=== PATIENT | male | born 1945 | race Caucasian/White ===

== ENCOUNTER 2019-07-06 12:28 | Emergency (ER) | payer OTHER ==
[~2019-07-06] VITALS: Ht 180.3 cm; Wt 44.0 kg
[~2019-07-06 12:28] MED LIST: ANXIETY; ASPI81CH PO; CHOLESTEROL; GEMF600 PO; Lipo-Flavonoid1 EACH PO; MULVITMIND PO; Paxil20 MG PO
[2019-07-06 13:12] LABS: BASOPHILS ABSOLUTE AUTO 0.07 K/mm3 (0.00-0.23); BASOPHILS PERCENT AUTO 1 % (0-2); EOSINOPHILS ABSOLUTE AUTO 0.63 K/mm3 (0.00-0.68); EOSINOPHILS PERCENT AUTO 7 % (0-6); Hematocrit 42.6 % (37.0-53.0); Hemoglobin 13.8 g/dL (13.5-17.5); IMMATURE GRAN ABSOLUTE AUTO 0.02 K/mm3 (0.00-0.10); IMMATURE GRAN PERCENT AUTO 0 % (0-1); LYMPHOCYTES ABSOLUTE AUTO 2.24 K/mm3 (0.84-5.20); LYMPHOCYTES PERCENT AUTO 26 % (21-46); MONOCYTES ABSOLUTE AUTO 0.65 K/mm3 (0.16-1.47); MONOCYTES PERCENT AUTO 8 % (4-13); Mean Corpuscular HGB Conc 32.4 g/dL (31.5-36.5); Mean Corpuscular Volume 93 fL (80-100); Mean Platelet Volume 11.4 fL (9.1-12.4); NEUTROPHILS ABSOLUTE AUTO 4.96 K/mm3 (1.96-9.15); NEUTROPHILS PERCENT AUTO 58 % (41-73); Platelet Count 215 K/mm3 (150-400); RDW Coefficient Variation 12.4 % (11.7-14.2); RDW Standard Deviation 42.4 fL (35.1-46.3); White Blood Cell Count 8.57 K/mm3 (4.00-11.30)
[2019-07-06 13:16] LABS: Alanine Aminotransfer (ALT/SGP 28 U/L (12-78); Albumin, Blood 3.5 g/dL (3.4-5.0); Albumin/Globulin Ratio 0.9 (0.8-1.8); Alk Phos 83 U/L (50-136); Anion Gap 5 mmol/L (6-16); Aspartate Aminotrans (AST/SGOT 21 U/L (12-37); Bilirubin, Total 1.1 mg/dL (0.1-1.0); Blood Urea Nitrogen 17 mg/dL (8-24); Bun/Creatinine Ratio 16.8 (12.0-20.0); CO2, Blood 26 mmol/L (21-32); Calcium, Blood 8.7 mg/dL (8.5-10.1); Chloride, Blood 109 mmol/L (98-108); Creatinine, Blood 1.01 mg/dL (0.60-1.20); Globulin, Blood 3.9 g/dL (2.2-4.0); Glomerular Filtration Rate >60 (60-); Glucose, Blood 97 mg/dL (70-99); Potassium, Blood 4.3 mmol/L (3.5-5.5); Sodium, Blood 140 mmol/L (136-145); Total Protein, Blood 7.4 g/dL (6.4-8.2)
[2019-07-06 14:12] LABS: Source, Urine Voided
[2019-07-06 14:15] LABS: Bilirubin, Urine Neg (Neg); Blood, Urine Neg (Neg); Glucose Qualitative, Urine Neg (Neg); Ketones, Urine Neg (Neg); Leukocyte Esterase, Urine Neg (Neg); Nitrite, Urine Neg (Neg); Protein, Urine Neg (Neg); Urobilinogen, Urine NORM (Normal)
[2019-07-06 14:21] LABS: Appearance, Urine Clear (Clear); Color, Urine Yellow (P-Yellow)
[2019-07-06] MEDS ORDERED: LEVE500 PO (15:12)
== END 2019-07-06 15:47 | disposition home or self-care (01) ==
LOC: ER 12:28
PROVIDERS: Emergency Medicine
DX: R41.0 Disorientation, unspecified (principal); Z79.899 Other long term (current) drug therapy; Z79.82 Long term (current) use of aspirin; F41.9 Anxiety disorder, unspecified
CPT/HCPCS: 36415; 70450; 71046; 80053; 81003; 85025; 93005; 93010; 96365; 99285-25; J1953

== ENCOUNTER 2019-10-30 12:56 | Emergency (ER) | payer OTHER ==
[~2019-10-30] VITALS: Ht 177.8 cm; Wt 93.0 kg
[~2019-10-30 12:56] MED LIST changes: +LEVE500 PO
[2019-10-30 13:32] LABS: Source, Urine Clean Catch
[2019-10-30 13:34] LABS: Bilirubin, Urine Neg (Neg); Blood, Urine Neg (Neg); Glucose Qualitative, Urine Neg (Neg); Ketones, Urine 2+ (Neg); Leukocyte Esterase, Urine 1+ (Neg); Nitrite, Urine Neg (Neg); Protein, Urine 1+ (Neg); Specific Gravity, Urine 1.025 (1.003-1.022); Urobilinogen, Urine 1+ (Normal)
[2019-10-30 14:03] LABS: Appearance, Urine Clear (Clear); Color, Urine Yellow (P-Yellow)
[2019-10-30 14:04] LABS: Mucus Mod (0-Heavy)
[2019-10-30 14:05] LABS: Bacteria Few /hpf; Squamous Epithelial Cells Not Seen /hpf (Few)
[2019-10-30] MEDS ORDERED: QUET25 PO (14:07)
[2019-10-30] MEDS ORDERED: Macrobid 100 M100 MG PO (14:07)
[2019-11-13] MEDS ORDERED: ATOR20 PO (18:30)
[2019-11-13] MEDS ORDERED: CLOP75 PO (18:30)
[2019-11-13] MEDS ORDERED: GABA300 PO (18:30)
[2019-11-13] MEDS ORDERED: LEVE500 PO (21:02)
== END 2019-10-30 14:21 | disposition home or self-care (01) ==
LOC: ER 12:56
PROVIDERS: Physician Assistant
DX: N39.0 Urinary tract infection, site not specified (principal); F03.91 Unspecified dementia, unspecified severity, with behavioral disturbance; R82.81 Pyuria; Z79.82 Long term (current) use of aspirin; Z79.899 Other long term (current) drug therapy; E78.00 Pure hypercholesterolemia, unspecified; F41.9 Anxiety disorder, unspecified; Z86.73 Personal history of transient ischemic attack (TIA), and cerebral infarction without residual deficits
CPT/HCPCS: 81001; 87086; 99282

== ENCOUNTER 2019-11-19 22:57 | Emergency (ER) | payer OTHER ==
[~2019-11-19] VITALS: Ht 177.8 cm; Wt 95.2 kg
[~2019-11-19 22:57] MED LIST changes: +ATOR20 PO; +CLOP75 PO; +GABA300 PO; +Macrobid 100 M100 MG PO; +QUET25 PO
[2019-11-20 00:13] LABS: Source, Urine Voided
[2019-11-20 00:15] LABS: BASOPHILS ABSOLUTE AUTO 0.07 K/mm3 (0.00-0.23); BASOPHILS PERCENT AUTO 1 % (0-2); EOSINOPHILS ABSOLUTE AUTO 0.33 K/mm3 (0.00-0.68); EOSINOPHILS PERCENT AUTO 4 % (0-6); Hematocrit 40.2 % (37.0-53.0); Hemoglobin 12.9 g/dL (13.5-17.5); IMMATURE GRAN ABSOLUTE AUTO 0.04 K/mm3 (0.00-0.10); IMMATURE GRAN PERCENT AUTO 0 % (0-1); LYMPHOCYTES ABSOLUTE AUTO 1.74 K/mm3 (0.84-5.20); LYMPHOCYTES PERCENT AUTO 19 % (21-46); MONOCYTES ABSOLUTE AUTO 0.71 K/mm3 (0.16-1.47); MONOCYTES PERCENT AUTO 8 % (4-13); Mean Corpuscular HGB 29.6 pg (26.0-34.0); Mean Corpuscular HGB Conc 32.1 g/dL (31.5-36.5); Mean Corpuscular Volume 92 fL (80-100); NEUTROPHILS ABSOLUTE AUTO 6.39 K/mm3 (1.96-9.15); NEUTROPHILS PERCENT AUTO 69 % (41-73); Platelet Count 205 K/mm3 (150-400); RDW Coefficient Variation 12.8 % (11.7-14.2); RDW Standard Deviation 43.8 fL (35.1-46.3); Red Blood Cell Count 4.36 M/mm3 (4.30-5.90); White Blood Cell Count 9.28 K/mm3 (4.00-11.30)
[2019-11-20 00:16] LABS: Bilirubin, Urine Neg (Neg); Blood, Urine 1+ (Neg); Glucose Qualitative, Urine Neg (Neg); Ketones, Urine Neg (Neg); Leukocyte Esterase, Urine 1+ (Neg); Nitrite, Urine Neg (Neg); Protein, Urine Neg (Neg); Specific Gravity, Urine 1.025 (1.003-1.022); Urobilinogen, Urine NORM (Normal)
[2019-11-20 00:19] LABS: Appearance, Urine Clear (Clear); Color, Urine Yellow (P-Yellow)
[2019-11-20 00:23] LABS: Bacteria Few /hpf; Mucus Light (0-Heavy); Squamous Epithelial Cells Not Seen /hpf (Few); White Blood Cells, Urine 0-2 /hpf (0-5)
[2019-11-20 00:26] LABS: U Amphetamine Screen Not Detected; U Barbituate Screen Not Detected; U Benzodiazapine Screen Not Detected; U Buprenorphine Screen Not Detected; U Cannabinoids Screen Not Detected; U Cocaine Screen Not Detected; U Methadone Screen Not Detected; U Methamphetamine Screen Not Detected; U Opiates Screen Not Detected; U Oxycodone Screen Not Detected; U Phencyclidine Screen Not Detected
[2019-11-20 00:27] LABS: U Propoxyphene Screen Not Detected
[2019-11-20 00:33] LABS: Alanine Aminotransfer (ALT/SGP 24 U/L (12-78); Albumin, Blood 3.5 g/dL (3.4-5.0); Albumin/Globulin Ratio 0.9 (0.8-1.8); Alk Phos 93 U/L (50-136); Anion Gap 5 mmol/L (6-16); Aspartate Aminotrans (AST/SGOT 16 U/L (12-37); Bilirubin, Total 0.5 mg/dL (0.1-1.0); Blood Urea Nitrogen 21 mg/dL (8-24); Bun/Creatinine Ratio 17.2 (12.0-20.0); CO2, Blood 27 mmol/L (21-32); Calcium, Blood 8.7 mg/dL (8.5-10.1); Chloride, Blood 110 mmol/L (98-108); Creatinine, Blood 1.22 mg/dL (0.60-1.20); Ethanol (Alcohol), Blood, Med <3 mg/dL; Glomerular Filtration Rate >60 (60-); Glucose, Blood 125 mg/dL (70-99); Potassium, Blood 4.1 mmol/L (3.5-5.5); Sodium, Blood 142 mmol/L (136-145); Total Protein, Blood 7.5 g/dL (6.4-8.2)
== END 2019-11-20 10:42 | disposition home or self-care (01) ==
LOC: ER 22:57
PROVIDERS: Emergency Medicine
DX: F03.90 Unspecified dementia, unspecified severity, without behavioral disturbance, psychotic disturbance, mood disturbance, and anxiety (principal); Z79.82 Long term (current) use of aspirin; Z79.899 Other long term (current) drug therapy; F41.9 Anxiety disorder, unspecified; E78.00 Pure hypercholesterolemia, unspecified; Z86.73 Personal history of transient ischemic attack (TIA), and cerebral infarction without residual deficits
CPT/HCPCS: 36415; 70450; 80053; 81001; 85025; 87086; 99285-25; G0480

== ENCOUNTER 2019-11-22 20:10 | Observation (INO) | payer OTHER ==
[~2019-11-22] VITALS: Ht 177.8 cm; Wt 94.4 kg
[2019-11-22 21:28] LABS: Source, Urine Clean Catch
[2019-11-22 21:39] LABS: Bilirubin, Urine Neg (Neg); Blood, Urine Neg (Neg); Glucose Qualitative, Urine Neg (Neg); Ketones, Urine Neg (Neg); Leukocyte Esterase, Urine Neg (Neg); Nitrite, Urine Neg (Neg); Protein, Urine Neg (Neg); Specific Gravity, Urine 1.025 (1.003-1.022); Urobilinogen, Urine NORM (Normal)
[2019-11-22 21:42] LABS: Appearance, Urine Clear (Clear); Color, Urine Yellow (P-Yellow)
[2019-11-22 21:46] LABS: U Amphetamine Screen Not Detected; U Barbituate Screen Not Detected; U Benzodiazapine Screen Not Detected; U Buprenorphine Screen Not Detected; U Cannabinoids Screen Not Detected; U Cocaine Screen Not Detected; U Methadone Screen Not Detected; U Methamphetamine Screen Not Detected; U Opiates Screen Not Detected; U Oxycodone Screen Not Detected; U Phencyclidine Screen Not Detected; U Propoxyphene Screen Not Detected
[2019-11-22 21:47] LABS: BASOPHILS ABSOLUTE AUTO 0.08 K/mm3 (0.00-0.23); BASOPHILS PERCENT AUTO 1 % (0-2); EOSINOPHILS ABSOLUTE AUTO 0.43 K/mm3 (0.00-0.68); EOSINOPHILS PERCENT AUTO 5 % (0-6); Hematocrit 41.2 % (37.0-53.0); Hemoglobin 13.1 g/dL (13.5-17.5); IMMATURE GRAN ABSOLUTE AUTO 0.05 K/mm3 (0.00-0.10); IMMATURE GRAN PERCENT AUTO 1 % (0-1); LYMPHOCYTES ABSOLUTE AUTO 1.46 K/mm3 (0.84-5.20); LYMPHOCYTES PERCENT AUTO 17 % (21-46); MONOCYTES ABSOLUTE AUTO 0.72 K/mm3 (0.16-1.47); MONOCYTES PERCENT AUTO 8 % (4-13); Mean Corpuscular HGB 29.7 pg (26.0-34.0); Mean Corpuscular HGB Conc 31.8 g/dL (31.5-36.5); Mean Corpuscular Volume 93 fL (80-100); Mean Platelet Volume 11.1 fL (9.1-12.4); NEUTROPHILS ABSOLUTE AUTO 6.03 K/mm3 (1.96-9.15); NEUTROPHILS PERCENT AUTO 69 % (41-73); Platelet Count 220 K/mm3 (150-400); RDW Coefficient Variation 13.2 % (11.7-14.2); RDW Standard Deviation 45.3 fL (35.1-46.3); Red Blood Cell Count 4.41 M/mm3 (4.30-5.90); White Blood Cell Count 8.77 K/mm3 (4.00-11.30)
[2019-11-22 22:12] LABS: Ethanol (Alcohol), Blood, Med <3 mg/dL; Salicylate <1.7 mg/dL (2.8-20.0)
[2019-11-22 22:13] LABS: Acetaminophen, Random <2.0 ug/mL (10.0-30.0)
[2019-11-23 01:12] LABS: Alanine Aminotransfer (ALT/SGP 28 U/L (12-78); Albumin, Blood 3.7 g/dL (3.4-5.0); Albumin/Globulin Ratio 0.9 (0.8-1.8); Alk Phos 91 U/L (50-136); Anion Gap 6 mmol/L (6-16); Aspartate Aminotrans (AST/SGOT 19 U/L (12-37); Bilirubin, Total 0.5 mg/dL (0.1-1.0); Blood Urea Nitrogen 18 mg/dL (8-24); Bun/Creatinine Ratio 15.9 (12.0-20.0); CO2, Blood 27 mmol/L (21-32); Calcium, Blood 8.8 mg/dL (8.5-10.1); Chloride, Blood 110 mmol/L (98-108); Creatinine, Blood 1.13 mg/dL (0.60-1.20); Globulin, Blood 4.1 g/dL (2.2-4.0); Glomerular Filtration Rate >60 (60-); Glucose, Blood 136 mg/dL (70-99); Potassium, Blood 4.1 mmol/L (3.5-5.5); Sodium, Blood 143 mmol/L (136-145); Total Protein, Blood 7.8 g/dL (6.4-8.2)
--- NOTE | 2019-11-23 02:34 | NUR ---
PT TO ICU 14 VIA WHEELCHAIR WITH CREDIT UNION EXAMINER @ 0114, PT ORIENTED TO SELF AND YEAR, BELVES HE IS IN [place] AND UNSURE OF THE DAY/MONTH. PT DROWSY, WAS GIVEN A DOSE OF SEROQUEL IN THE ED, DIFFICULTY OBTAINING INFORMATION PT FALLS ASLEEP DURING ASSESSMENT, PT REMAINS AROUSABLE TO VERBAL STIMULI. VSS, O2 SATURATIONS> 90% ON RA. PT UNSURE OF LAST FOOD/DRINK AND LAST BM. REPORTS HAVING A CHIPPED TOOTH, BUT DENIES ANY PAIN OR DISCOMFORT. CALL PLACED TO DR THOMPSON REGARDING IV PLACEMENT, LABS SABLE, ORDERS FOR NO IV ACCESS NEEDED PLACED.
--- NOTE | 2019-11-23 06:38 | NUR ---
TO PTS ROOM UPON HEARING BED ALARM SOUND, PT OUT OF BED, STS NEEDS TO USE THE RESTROOM, ASSISTED PT TO BEDSIDE TOILET, REMINDED PT OF CALL LIGHT. PT WITH STEADY GAIT, MINIMAL VERBAL ASSISTANCE, BED ALARM SENSITIVIT INCREASED. CALL LIGTH WITHIN REACH, PT CALM, COOPERATIVE AND PLEASANT.
--- NOTE | 2019-11-23 08:30 | NUR ---
ASSESSMENT- PT AWAKE, ALERT, COOPERATIVE. ABLE TO ANSWER QUESTIONS APPROPRIATELY. DR. SNELL HERE-UPDATED. TO SEE BACK ROLL LATHE OPERATOR TODAY. EATING BREAKFAST, PT DENIES COMPLAINTS. BED ALARM ON
[2019-11-23 10:28] LABS: BASOPHILS ABSOLUTE AUTO 0.07 K/mm3 (0.00-0.23); BASOPHILS PERCENT AUTO 1 % (0-2); EOSINOPHILS PERCENT AUTO 7 % (0-6); Hematocrit 38.5 % (37.0-53.0); Hemoglobin 12.4 g/dL (13.5-17.5); IMMATURE GRAN ABSOLUTE AUTO 0.03 K/mm3 (0.00-0.10); IMMATURE GRAN PERCENT AUTO 0 % (0-1); LYMPHOCYTES ABSOLUTE AUTO 1.71 K/mm3 (0.84-5.20); LYMPHOCYTES PERCENT AUTO 23 % (21-46); MONOCYTES ABSOLUTE AUTO 0.55 K/mm3 (0.16-1.47); MONOCYTES PERCENT AUTO 7 % (4-13); Mean Corpuscular HGB Conc 32.2 g/dL (31.5-36.5); Mean Corpuscular Volume 93 fL (80-100); NEUTROPHILS ABSOLUTE AUTO 4.69 K/mm3 (1.96-9.15); NEUTROPHILS PERCENT AUTO 62 % (41-73); Platelet Count 190 K/mm3 (150-400); RDW Coefficient Variation 13.2 % (11.7-14.2); Red Blood Cell Count 4.13 M/mm3 (4.30-5.90); White Blood Cell Count 7.55 K/mm3 (4.00-11.30)
[2019-11-23 10:40] LABS: Alanine Aminotransfer (ALT/SGP 26 U/L (12-78); Albumin, Blood 3.2 g/dL (3.4-5.0); Albumin/Globulin Ratio 0.8 (0.8-1.8); Alk Phos 82 U/L (50-136); Anion Gap 3 mmol/L (6-16); Aspartate Aminotrans (AST/SGOT 20 U/L (12-37); Bilirubin, Total 0.9 mg/dL (0.1-1.0); Blood Urea Nitrogen 16 mg/dL (8-24); Bun/Creatinine Ratio 17.1 (12.0-20.0); CO2, Blood 29 mmol/L (21-32); Calcium, Blood 8.5 mg/dL (8.5-10.1); Chloride, Blood 108 mmol/L (98-108); Creatinine, Blood 0.94 mg/dL (0.60-1.20); Globulin, Blood 3.9 g/dL (2.2-4.0); Glomerular Filtration Rate >60 (60-); Glucose, Blood 136 mg/dL (70-99); Potassium, Blood 3.5 mmol/L (3.5-5.5); Sodium, Blood 140 mmol/L (136-145); Total Protein, Blood 7.1 g/dL (6.4-8.2)
--- NOTE | 2019-11-23 10:54 | NUR ---
PT ASSISTED TO GET UP IN ROOM, AMBULATES WITHOUT PROBLEMS. COOPERATIVE
--- NOTE | 2019-11-23 12:34 | NUR ---
ATE 100% LUNCH. DENIES ANY PROBLEMS. DAUGHTER CALLED-WANTS TO TALK WITH SOCIAL SERVICE, NUMBER GIVEN TO JUAN JOSÉ
--- NOTE | 2019-11-23 15:58 | NUR ---
SOCIAL SERVICE CALLED WITH [employer]-STATE TALKED WITH PT'S DAUGHTER, PLAN FOR POSSIBLE MEMORY CARE PLACEMENT. PT VOICES CONCERNS THAT HE WOULD LIKE HIS DAUGHTER TO MOVE OUT, UPDATE TO WOOD TECHNOLOGIST. PSYCH CONSULT ORDERED BY DR. SNELL, DR. LOMELI TO SEE TOMORROW. PT STATES WOULD LIKE TO GO HOME BUT IS AGREEABLE TO STAY. ALERT, ORIENTED TO SITUATION, COOPERATIVE. UP IN ROOM BY SELF. VSS
[2019-11-23] MEDS ORDERED: KEPPRA1000 MG PO (16:10)
[2019-11-23] MEDS ORDERED: ALBU90OI INH (16:12)
--- NOTE | 2019-11-23 16:23 | NUR ---
MEDICATION REC- CALLED PT'S DAUGHTER CLAYTON REGARDING MEDICATIONS-REVIEWED MED LIST. NOTIFIED DR. SNELL OF DOSES OF KEPPRA AND PAXIL AND SEROQUEL. INCREASE DOSES TO PT'S REGULAR DOSES AT HOME OF KEPPRA AND PAXIL BUT KEEP SEROQUEL AT 50 MG UNTIL PSYCH EVAL.
--- NOTE | 2019-11-23 18:25 | NUR ---
PT UP IN ROOM, SOME PACING, PUT ON HIS OWN CLOTHES. EXPLAINED PLAN OF CARE, PT AGREEABLE TO LAY ON BED. WORRIED ABOUT HIS CAR KEYS-CALLED PT'S DAUGHTER AND KEYS ARE AT HOME. PT NEEDS MUCH ASSURANCE THAT KEYS ARE NOT LOST. UPDATE TO DR. SNELL REGARDING PACING, ANXIETY. ORDERS FOR BEDTIME DOSE OF SEROQUEL TO GIVE NOW, AND PRN DOSES IF NEEDED. CONTINUE TO MONITOR AND PROVIDE REASSURANCE.
--- NOTE | 2019-11-23 18:51 | NUR ---
PT COMFORTABLE IN BED NOW WATCHING TV.
--- NOTE | 2019-11-23 21:28 | NUR ---
ASSUMPTION OF CARE PT RESTING IN BED WATCHING TELEVISION, ORIENTED TO SELF, LOCATION, MONTH, YEAR AND FOLLOWING DIRECTIONS. PT HAS DIFFICULTY REPORTING WHAT BROUGHT HIM INTO THE HOSPITAL. PT NOT ANSWERING QUESTIONS AT TIMES, DIFFICULT TO DISCERN WHETHER PT IS HARD OF HEARING OR CONFUSED, BUT REMAINS CALM AND PLEASANT. PT AMBULATES INDEPENDENTLY IN ROOM, SWALLOWS PILLS WHOLE WITH WATER, SNACKS AT BEDSIDE, EATING INDEPENDENTLY. RECEIVED CALL FROM PTS BROTHER AND SISTER IN LAW, FELICITA PETTY, UPDATED ON PTS STATUS. FELICITA REPORT HELPING PTS DAUGHTER WITH PTS CARE WHILE DAUGHTER WAS OUT OF TOWN, STS PT HAS BEEN HAVING DIFFICULTY REMEMBERING TO TAKE HIS PILLS AND NEEDS HELP WITH PREPARING MEALS. THEY STATE PT BECOMES EASILY AGITATED AT TIMES AND IS DIFFICULT TO REDIRECT/CALM DOWN BUT HE RESPONDS WELL TO PEOPLE OF AUTHORITY SUCH POLICE, EMS, NURSES, ETC.
--- NOTE | 2019-11-23 23:34 | NUR ---
PT UP IN ROOM LOOKING FOR BATHROOM, PT WITH INCONTINENT VOID WHILE SLEEPING, ASSISTED PT TO BEDSIDE TOILET. PT REFUSES TO CHANGE UNDERWEAR OR ALLOW STAFF TO CHANGE LINENS ON BED. PRN SEROQUEL ADMINISTERED. FOLLOW WITH PT, PT CONTINUES TO DECLINE NEW PANTS AND LINENS.
--- NOTE | 2019-11-24 00:30 | NUR ---
ATTEMPTS MADE TO FIND MALE STAFF MEMBER TO ASSIST PT WITH CLOTHING AND LINEN CHANGE. THOMAS DELAROSA CNA TO PTS ROOM, PT AGREEABLE TO LINEN AND CLOTHING CHANGE.
--- NOTE | 2019-11-24 05:03 | NUR ---
REPORT CALLED TO MEDICAL FLOOR RN, DEPARTED ICU @ [phone]
--- NOTE | 2019-11-24 05:35 | NUR ---
LOADING MANAGER SUMMARY Patient arrived from ICU to room 352 without compliications, no complaints of discomfort. Patient did state that he did not want female staff assisting with his personal needs. See previous shift summary
--- NOTE | 2019-11-24 16:23 | NUR ---
SUMMARY PT HAS BEEN CALM, PLEASANT/COOPERATIVE T/O DAY. A/O X2, HE IS FORGETFUL OF TIME/DATE, SOMEWHAT FORGETFUL OF RECENT EVENTS. DR LOMELI IN FOR ASSESSMENT, STATE MEMORY DEFICITS NOTED, SPOKE w DAUGHTER WHO HAS GUARDIANSHIP, PLAN FOR PT TO TRANSITION TO MEMORY CARE FACILITY WHEN APPROP. PT UP TODAY TO SHOWER, SBA. 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 NO MANAGEMENT ISSUES T/O DAY.
--- NOTE | 2019-11-25 02:30 | NUR ---
0230 ASSUMPTION OF CARE RECIEVED REPORT FROM ASIA OGLESBY. APPEARS TO BE RESTING. NO ACUTE NEEDS AT THIS TIME. BED REAMINS IN LOWEST POSITION; ALARM ON. CALL LIGHT WITHIN REACH. WCTM.
--- NOTE | 2019-11-25 05:39 | NUR ---
SHIFT SUMMARY ALERT, ABLE TO MAKE NEEDS KNOWN. COOPERATIVE WITH CARE. ANSWERS QUESTIONS APPROPRIATELY. NO C/O PAIN/DISCOMFORT. SBA TO BATHROOM; STEADY GAIT NOTED. APPEARED TO REST WELL. NO ACUTE CHANGES NOTED. VSS/AFEBRILE. BED REAMINS IN LOWEST POSITION; ALARM ON. CALL LIGHT WITHIN REACH. WCTM. REPORT TO ONCOMING RN.
--- NOTE | 2019-11-25 17:40 | NUR ---
SHIFT SUMMARY PT A/O X 4. PT BED IN LOWEST POSITION. PT CALLING APPROPRIATELY. VSS. NO IV ACCESS. AWAITING PLACEMENT OF PT.
--- NOTE | 2019-11-26 04:44 | NUR ---
SUMMARY NO ISSUES NOTED PT HAS BEEN QUIET FORMOST OF SHIFT. PT CURRENTLY SLEEPING IN NO DISTRESS. CALL LIGHT IN REACH AND BED ALARM ON.
--- NOTE | 2019-11-26 17:09 | NUR ---
SHIFT SUMMARY PT ALERT TO SELF AND LOCATION THIS SHIFT. PT FORGETS TO CALL. BED ALARM ON. PT FREQUENTLY GETS OUT OF BED TO USE THE BATHROOM. PT'S BROTHER IN THE ROOM TO VISIT EARLY THIS AFTERNOON. PT STATED REPEATEDLY THAT HE WANTED TO GO HOME. WHEN ASKED HOW HE WAS GETTING HOME HE STATED HIS BROTHER, WHO DECLINED TO PROVIDE A RIDE. PT GREW AGITATED AND DIFFICULT TO REDIRECT. PT'S BROTHER DECIDED TO LEAVE STATING THAT HIS PRESENCE WAS EXACERBATING THE ISSUE. PT DIFFICULT TO REDIRECT FOR A SHORT PERIOD AFTER THEN CALMED CONCIDERABLY. PT HAS BEEN LAYING IN BED, COOPERATIVE WITH CARE, WITH THE TELEVISION ON THROUGH THE REST OF THE SHIFT.
--- NOTE | 2019-11-27 05:23 | NUR ---
SUMMARY PT REMAINS CONFUSED. PT STATED HE WANTED TO WALK HOME AND HAD PUT ON HIS SHOES. PT WAS REDIRECTED TO BED EASILY. PT REPORTS HEARING HIS BROTHER IN THE HALLWAY. PT HAS SLEPT OFF AND ON AND AT TIMES TRIED TO GET OUT OF BED W/ OUT ASSISTANCE. PT HAS BEEN COOPERATIVE W/ CARE. PT CURRENTLY SLEEPING IN NO DISTRESS. BED ALARM ON.
--- NOTE | 2019-11-27 16:39 | NUR ---
SHIFT SUMMARY PT LOW FALL RISK, MADE IND IN ROOM. CAMERA TURNED OFF. NO CHANGES IN ASSESSMENT AT THIS TIME. PT AMBULATING WELL IN ROOM. VOIDING WELL IN BATHROOM. PT DENIES PAIN T/O DAY. VS REVIEWED. PT AWAITNG PLACEMENT. WILL CONTINUE TO MONITOR UNTIL TURNOVER IS COMPLETE.
--- NOTE | 2019-11-28 05:35 | NUR ---
SUMMARY: PT A/OX4, INDEPENDENT IN ROOM AND HAS BEEN PLEASANT/COOPERATIVE W/CARE. HE'S DENIED PAIN, NAUSEA AND ALL OTHER COMPLAINTS THIS SHIFT. HE'S UP AD HINA TO TOILET AND SPECIFIES NEEDS PRN. VSS/AFEBRILE, NO ACUTE CHANGES. PT AWAITING PLACEMENT. WCTM AND REPORT TO DAY RN.
--- NOTE | 2019-11-28 16:32 | NUR ---
SHIFT SUMMARY- PT A/OX3, FORGETFUL AT TIMES. LS CLEAR, ON RA. HRR. PT WITH NO COMPLAINTS T/O THE DAY. INDEP UP IN ROOM AND HALLS. GOOD APPETITE. PT AWAITING MEMORY CARE PLACEMENT AT THIS TIME.
--- NOTE | 2019-11-29 04:45 | NUR ---
SUMMARY: PT A/OX3 BUT HAD PARANOID DELUSIONS AT START OF SHIFT THAT "A MAN WAS COMING TO KILL HIM W/A REVOLVER". HE ADMITTED HE'D "CLIMB OUT THE WINDOW RIGHT NOW IF IT WASN'T 30 FEET TO THE GROUND". REORIENTATION, REASSURANCE AND SAFETY ENSURED AND PT CALMED DOWN. HS SEROQUEL RECIEVED AND PT SLEPT MAJORITY OF NOCTE EXCEPT TO VOID. HE'S INDEPENDENT IN ROOM AND SPECIFIES NEEDS. NO ACUTE CHANGES, VSS/AFEBRILE. PLACEMENT PENDING. WCTM AND REPORT TO DAY RN.
--- NOTE | 2019-11-29 15:59 | NUR ---
SHIFT SUMMARY- PT A/O X3 BUT FORGETFUL. PT INDEP UP IN ROOM. PT DENIES ANY COMPLAINTS T/O THE DAY. LS CLEAR, ON RA. HRR. PT HAS BEEN PLEASANT AND COOPERATIVE BUT DID GET ANXIOUS WHEN FAMILY WAS HERE AND WAS WANTING TO GO HOME. PT CURRENTLY AWAITING MEMORY CARE PLACEMENT.
--- NOTE | 2019-11-30 03:47 | NUR ---
SHIFT SUMMARY PATIENT HAD NO ACUTE CHANGES OBSERVED. AXOX 3 AND FORGETFUL. INDEPENDENT IN THE ROOM. TAKES MEDICATION WHOLE WITH WATER. NO IV ACCESS. VSS/AFEBRILE. DENIES PAIN, SOB, AND N/V. SCHEDULE SEROQUEL GIVEN PER EMAR. HX DEMENTIA. CALL LIGHT IN REACH. BED IN LOWEST POSITION. WILL CONTINUE TO MONITOR UNTIL DAY SHIFT NURSE ASSUMES CARE.
--- NOTE | 2019-11-30 23:23 | NUR ---
PATIENT WALKED OUT INTO TRIVEDI WANTING TO LEAVE FULLY DRESSED. PATIENT REORIENTED TO TIME AND PLACE AND WENT BACK INTO ROOM. WILL CONTINUE TO MONITOR.
--- NOTE | 2019-12-01 03:45 | NUR ---
SHIFT SUMMARY PATIENT HAD NO ACUTE CHANGES OBSERVED. PATIENT OOB WANTED TO LEAVE FULLY DRESSED X ONE. REORIENTED TO TIME AND PLACE AND ABLE TO GO BACK INTO ROOM. HX DEMENTIA. AXOX 2 AND INDEPENDENT. VSS/AFEBRILE. DENIES PAIN, SOB, AND N/V. TOOK MEDICATION WHOLE WITH WATER. NO IV ACCESS. CALL LIGHT IN REACH. BED IN LOWEST POSITION. WILL CONTINUE TO MONITOR UNTIL DAY SHIFT NURSE ASSUMES CARE.
--- NOTE | 2019-12-01 10:26 | NUR ---
0955- PT TAKEN BY MELISSA FLOREZ TO HAVE [facility] ESOPHAGIAL STUDY
--- NOTE | 2019-12-01 17:51 | NUR ---
SUMM- PT ALERT TO SELF AND PLACE. FORGETFUL, AND PERSEVERATING ON GOING HOME. THINKS SOMEONE TOLD HIM HE COULD GO HOME TODAY. RN SPOKE WITH RICH, PT'S DAUGHTER WHO STATES HE LIVED WITH HIS OTHER DAUGHTER AND WAS PHYSICALLY ABBUSIVE TO HER. HE HAS SOME FORM OF DEMENTIA THAT HASN'T BEED DIAGNOSED YET BY A NEUROLOGIST, BUT HAS BEEN KNOWN TO BE VIOLENT AND SUICIDAL, STANDING ON THE RAILROAD TRACKS IN THE PAST. PT HAS BEEN CALM AND COOPERATIVE AND DIRECTABLE, WITHDRAWN AND SHY. BUT GOT PT TO COME OUT INTO TRIVEDI AND WALK AROUND, LOOK OUT THE WINDOW.
--- NOTE | 2019-12-01 19:49 | NUR ---
Pt awake in bed watching TV. Denied pain when asked. Call light in reach.
--- NOTE | 2019-12-02 06:04 | NUR ---
SHIFT SUMMARY NOTED SOME APPARENT PARANOIA WITH MEDS AT , HIS AFFECT AND DEMEANOR SEEMED SKEPTICAL WHEN NURSE DISCUSSED THEM WITH HIM. NURSE OPENED MEDS IN FRONT OF PT AND PT SLOWLY TOOK THEM ONE AT A TIME WITH QUESTIONS. CALL LIGHT IN REACH. HAS BEEN RESTING WITH FEW INTERUPTIONS SINCE .
[2019-12-02 10:07] LABS: BASOPHILS ABSOLUTE AUTO 0.09 K/mm3 (0.00-0.23); BASOPHILS PERCENT AUTO 1 % (0-2); EOSINOPHILS ABSOLUTE AUTO 0.42 K/mm3 (0.00-0.68); EOSINOPHILS PERCENT AUTO 5 % (0-6); Hematocrit 42.7 % (37.0-53.0); Hemoglobin 13.6 g/dL (13.5-17.5); IMMATURE GRAN ABSOLUTE AUTO 0.05 K/mm3 (0.00-0.10); IMMATURE GRAN PERCENT AUTO 1 % (0-1); LYMPHOCYTES ABSOLUTE AUTO 2.07 K/mm3 (0.84-5.20); LYMPHOCYTES PERCENT AUTO 25 % (21-46); MONOCYTES ABSOLUTE AUTO 0.54 K/mm3 (0.16-1.47); MONOCYTES PERCENT AUTO 7 % (4-13); Mean Corpuscular HGB 29.5 pg (26.0-34.0); Mean Corpuscular HGB Conc 31.9 g/dL (31.5-36.5); Mean Corpuscular Volume 93 fL (80-100); Mean Platelet Volume 11.2 fL (9.1-12.4); NEUTROPHILS ABSOLUTE AUTO 4.97 K/mm3 (1.96-9.15); NEUTROPHILS PERCENT AUTO 61 % (41-73); Platelet Count 223 K/mm3 (150-400); RDW Coefficient Variation 12.8 % (11.7-14.2); RDW Standard Deviation 43.7 fL (35.1-46.3); Red Blood Cell Count 4.61 M/mm3 (4.30-5.90); White Blood Cell Count 8.14 K/mm3 (4.00-11.30)
[2019-12-02 10:21] LABS: Alanine Aminotransfer (ALT/SGP 52 U/L (12-78); Albumin, Blood 3.5 g/dL (3.4-5.0); Albumin/Globulin Ratio 0.9 (0.8-1.8); Alk Phos 92 U/L (50-136); Anion Gap 3 mmol/L (6-16); Aspartate Aminotrans (AST/SGOT 26 U/L (12-37); Bilirubin, Total 0.8 mg/dL (0.1-1.0); Blood Urea Nitrogen 21 mg/dL (8-24); CO2, Blood 29 mmol/L (21-32); Calcium, Blood 8.9 mg/dL (8.5-10.1); Chloride, Blood 107 mmol/L (98-108); Creatinine, Blood 1.05 mg/dL (0.60-1.20); Glomerular Filtration Rate >60 (60-); Glucose, Blood 121 mg/dL (70-99); Potassium, Blood 3.8 mmol/L (3.5-5.5); Sodium, Blood 139 mmol/L (136-145); Total Protein, Blood 7.5 g/dL (6.4-8.2)
--- NOTE | 2019-12-02 13:10 | NUR ---
PT IS AGITATED INSIST ON WALKING HOME TO [facility], PT IS ARGUMENTATIVE AND NOT EASILY REDIRECTABLE, THE PT WAS GIVEN SEAQUEL AT THIS TIME, THE PT ATTEMPTED TO CALL HIS FAMILY BUT RECIEVED NO ANSWER, THE PT WAS UP IN THE TRIVEDI PUSHING ON THE DOOR TO GET OUT, AFTER APROX. 20 MIN THE PT RETURNED BACK TO HIS ROOM AND IS NOW LYING ON HIS BED
--- NOTE | 2019-12-02 17:10 | NUR ---
PT IS A/OX2, COOPERATIVE, THE PT HAS BEEN MOSTLY COMPLIANT TODAY, EXCEPT THIS AFTERNOON WHEN HE INSISTED ON WALKING HOME AND CAME OUT INTO THE TRIVEDI AND TRIED TO LEAVE THE SCU, THE PT EVENTUALLY GAVE UP AND WENT BACK INTO HIS ROOM AND LAYED DOWN ON HIS BED, THE PT APPEARS TO BE BREATHING EASILY ON RA, THE PT DENIED ANY PAIN, N/V, OR SOB T/O THE DAY, PT IS UP IND IN HIS ROOM, CALL LIGHT IN REACH, PT IS AWAITNG MEMORY CARE PLACEMENT
--- NOTE | 2019-12-02 20:46 | NUR ---
WAS AWAKE IN BED, TOLERALTED HS MEDS WHEN EXPLAINED AND OPENED IN FRONT OF HIM. REFUSED WATER BUT TOLERATED APPLESAUCE WELL WITH MEDS. AFFECT SAD, ASKED ABOUT DISCHARGE. VOICED UNDERSTANDING ABOUT HIM DISCUSSING IT WITH THE MD IN THE AM. LATER NOTED PT UP WANDERING ABOUT HALLWAY, LOOKING OUT THE WINDOW. PT ASKED IF HIS BROTHER WAS HERE TO PICK HIM UP YET. AGAIN REDIRECTED TO TIME OF NIGHT BUT THAT IF ANYONE WAS HERE TO SEE HIM, I WOULD LET HIM KNOW. VOICED UNDERSTANDING. WENT BACK TO ROOM. CALL LIGHT IN REACH
--- NOTE | 2019-12-03 04:42 | NUR ---
SHIFT SUMMARY WAS AWAKE AND PACING HALLWAY AT . VOICED HE WAS LOOKING FOR HIS BROTHER WHO HE FELT WAS COMING TO PICK HIM UP TO TAKE HIM HOME. WE DISCUSSED HIS SPEAKING TO THE MD RE WHAT HE WANTED, PT VOICED UNDERSTANDING BUT STILL PACED SOME BEFORE GOING BACK TO BED. HAS BEEN RESTING QUIETLY SINCE WHEN OBSERVED DURING ROUNDING. CALL LIGHT IN REACH
--- NOTE | 2019-12-03 17:00 | NUR ---
PT IS A/OX3, COOPERATIVE, TODAY THE PT BECAME IRRITATED AGAIN AND ATTEMPTED TO LEAVE THE UNIT INSISTING THAT HE WAS GOING TO WALK TO [place] AND CALL FOR A RIDE TO [facility], THE PT WAS PUSHING UP AGAINST THE UNIT CLOSED DOOR, ATTEMPTS TO DEESCALATE THE PT SWENSON MADE AND EVENTUALLY SECURITY WAS CALLED AND THE PT WAS TALKED INTO RETURNING TO HIS ROOM, PRN SERAQUAL WAS GIVEN TO THE PT X2 TODAY, THIS AFTERNOON THE PT HAS BEEN RESTING IN BED CALM, PT APPEARS TO BE BREATHING EASILY, CALL LIGHT IN REACH, PLAN IS TO DISCHARGE THE PT TO MEMORY CARE ON WEDNESDAY
--- NOTE | 2019-12-03 19:42 | NUR ---
PT WAS LAYING ON HIS BED, QUIET, WHEN STAFF ENTERED. VOICED HE WANTED TO GO HOME, AGREED TO DISCUSS IT WITH MD IN THE AM, PREVIUS NURSE WHO WAS WITH US, VOICED THAT THE POSSIBLE DC WAS POTENTIAL FOR TOMORROW. CALL LIGHT IN REACH
--- NOTE | 2019-12-04 10:31 | NUR ---
AGITATION: PATIENT UP TO THE LOCKED DOORS MULTIPLE TIMES THIS MORNING. PATIENT HAS HIS SUITCASE AND REPORTS THAT HE IS READY TO LEAVE AND WALK HOME. USED DIVERSION AND CALM COMMUNICATION THE INITIAL TIME TO ASSIST PATIENT BACK TO HIS ROOM. PATIENT AGAIN AT THE DOOR TO LEAVE. PATIENT IS ADAMANT THAT HE BE ALLOWED TO LEAVE AND WALK HOME. PATIENT'S BODY CALM. PATIENT RAISED HIS VOICE, BUT DID NOT YELL OR THREATEN STAFF. DISCUSSED DIFFICULTY OF WALKING HOME TO [place]. ENCOURAGED PATIENT TO STAY SO THAT WE COULD HELP HIM HERE. PATIENT CONTINUES TO BE UPSET AND AGITATED ABOUT NOT BEING ALLOWED TO LEAVE. PATIENT CONTINUES TO ATTEMPT TO GO OUT THE DOOR WHENEVER STAFF LEAVES THE UNIT. PATIENT SITTING IN A CHAIR BY THE EXIT DOORS. MEDICATED PER PRN FOR AGITATION.
--- NOTE | 2019-12-04 15:51 | NUR ---
AGITATION: PATIENT UPSET ABOUT NOT BEING ABLE TO LEAVE. PATIENT IS ABLE TO PULL ON THE DOOR STOP AND LET HIMSELF OUT OF THE SPECIAL CARE UNIT. USING CALM WORDS AND EXPLAINING TO THE PATIENT THAT HIS FAMILY WANTS HIM TO BE SAFE, ABLE TO GET PATIENT TO REMAIN ON THE UNIT. THIS HAPPENED TWO TIMES. ASSISTED PATIENT WITH A PHONE CALL FROM HIS BROTHER. PATIENT NOW INSISTS THAT HIS BROTHER IS GOING TO BE DOWNSTAIRS TO PICK HIM UP. REMINDED PATIENT THAT HIS BROTHER WILL COME UP TO SEE HIM. PATIENT CONTINUES TO BE AGITATED AND UPSET. MEDICATED PER PRNS. DISCUSSED PATIENT'S AGITATION WITH THE PATIENT'S BROTHER. ENCOURAGED BROTHER TO COME AND VISIT TOMORROW. PATIENT SITTING AT THE END OF THE TRIVEDI LOOKING OUT THE WINDOW. CONTINUES TO REMAIN PHYSICALLY CALM WITH STAFF.
--- NOTE | 2019-12-04 19:12 | NUR ---
END OF SHIFT SUMMARY: PATIENT DENIED PAIN THROUGHOUT THE SHIFT. PATIENT ANXIOUS AND AGITATED ABOUT NOT BEING ABLE TO LEAVE. ATTEMPTED MULTIPLE TIMES TO LEAVE THE UNIT. PROVIDING CALM REDIRECTION WORKED TO GET PATIENT BACK ON UNIT. STAFF PRESENCE AND PRN MEDICATION HELPED DECREASE AGITATION AND ANXIETY. SEE NURSES NOTE. BY THE END OF THE SHIFT, PATIENT CALMLY RESTING IN BED. PATIENT INDEPENDENT IN ROOM. PATIENT WALKS SLOWLY BUT STEADILY. PATIENT HAS AN EXCELLENT APPETITE. DENIES ABDOMINAL DISCOMFORT.
--- NOTE | 2019-12-05 04:48 | NUR ---
DISTRIBUTION TRANSFORMER ASSEMBLER SUMMARY NO ACUTE CHANGES THIS SHIFT. PT AAOX3, INDEPENDENT IN ROOM. PT ANSWERING QUESTIONS APPROPRIATELY AND HAS BEEN PLEASANT WHEN INTERACTING WITH STAFF. DENIED PAIN, SOB, N/V. PT UP TO BATHROOM TO URINATE TWICE TONIGHT. PT HAS SLEPT MOST OF THE NIGHT. VSS, WILL CONTINUE TO MONITOR.
--- NOTE | 2019-12-05 14:31 | NUR ---
PRISCA DONALDSON: SPOKE WITH MEIR AT [facility]. SHE IS BACK FROM [place]. SHE WILL ATTEMPT TO COME AND SEE THE PATIENT THIS WEEK OR WEEKEND. SHE REPORTS THAT THERE ARE NO OPENINGS UNTIL NEXT WEEK OR THE WEEK AFTER. MESSAGE LEFT FOR ETIENNE JAMESON RN TO UPDATE ON THE DISCHARGE OPTIONS.
--- NOTE | 2019-12-05 18:28 | NUR ---
END OF SHIFT SUMMARY: PATIENT DENIED PAIN THROUGHOUT SHIFT. PATIENT CONTINUED TO EXPRESS CONFUSION ABOUT WHY HE WAS UNABLE TO DISCHARGE. MULTIPLE TIMES, PATIENT CAME OUT IN THE TRIVEDI TO REPORT THAT HE WAS BEING DISCHARGED AND THAT HIS BROTHER WOULD BE DOWNSTAIRS TO PICK HIM UP. PROVIDED REORIENTATION AND ASSISTED PATIENT BACK TO HIS ROOM. PATIENT REMAINED CALL THROUGHOUT. NO SIGNS OF AGITATION NOTED. PATIENT RESTED IN BED MOST OF THE SHIFT. CALLED PRISCA DONALDSON TO DISCUSS PLACEMENT. MEIR REPORTED SHE WILL ATTEMPT TO BE HERE THIS WEEK OR WEEKEND TO ASSESS THE PATIENT. NOTIFIED DR. OLVERA. SEE NURSES NOTE.
--- NOTE | 2019-12-06 05:14 | NUR ---
FURNACE TENDER SUMMARY NO ACUTE CHANGES THIS SHIFT. PT AAOX3, INDEPENDENT IN ROOM. PT KNEW HIS NAME, , THE DATE, AND THAT HE WAS AT [facility] IN [place]. DENIES PAIN, SOB, N/V. HAS SLEPT MOST OF THE NIGHT. [facility]PPOS[facility] TO COME ASSESS PT SOMETIME THIS WEEK FOR PLACEMENT. VSS, WILL CONTINUE TO MONITOR.
--- NOTE | 2019-12-06 13:30 | NUR ---
PORTFOLIO STRATEGIST REPORTED PTS DAUGHTER HAD CALLED UP TO THE DESK AND STATED THAT PT HAD BEEN CALLING AND LEAVING HER MESSAGES TO PICK HIM UP. PT REPORTED HE WAS PLANNING ON LEAVING TODAY BREAKFAST TIME. WAS COOPERATIVE AND CARRYING ON AN APPROPRIATE CONVERSATION. GAVE A SEROQUEL AT 1100 AFTER RECEIVING INFORMATION ABOUT PT CALLING HIS DAUGHTER. PT HAD REPORTED CALLING HIS GIRLFRIEND AND BROTHER TO COME PICK HIM UP AND STARTED COMING FROM ROOM WITH HIS SUITCASE AFTER SEROQUEL GIVEN. BROTHER, RAKESH, AND HIS CAME ABOUT 1130 TO SEE PT. SOON BROTHER ARRIVED PT BEGAN TRYING TO LEAVE AGAIN DESPITE BROTHER TELLING HIM HE WASN'T GOING TO TAKE HIM HOME. SITUATION ESCALATED WITH PT GOING TO DOOR OF SCU AND ATTEMPTING TO GO OUT DESPITE BROTHER SPEAKING WITH HIM. SECURITY CALLED AT THAT POINT AND THEY WERE ABLE TO REDIRECT PT BACK TO HIS ROOM. MD WAS IN TO SEE PT WELL DURING THIS TIME AND PT NOT LISTENING OR UNDERSTANDING WHAT MD WAS ATTEMPTING TO TELL HIM. SECURITY AND FINGERNAIL FORMER ENDED UP WALKING WITH PT IN THE HALLWAY AND WHENEVER HE WAS DIRECTED BACK TO SCU HE WOULD COME BACK OUT AND ATTEMPT TO LEAVE AGAIN. AT THIS POINT BROTHER HAD LEFT IN ATTEMPT TO RELIEVE SITUATION. SPOKE WITH MD AND OBTAINED A 2 MD HOLD WELL ZYPREXA ORDERS. PT ENDED UP OUTSIDE NEAR THE 1ST FLOOR STATUE AND WAS SITTING WITH FINGERNAIL FORMER AND SECURITY. WAS INFORMED I WAS TO CALL [place] [employer] NOW THAT 2 MD HOLD ON THE CHART. CALLED AND PT RETURNED TO ROOM WITH FINGERNAIL FORMER, SECURITY, AND SNUFF BOX FINISHER. PROVIDED PT WITH THE OPTION OF ORAL OR IM ZYPREXA. TOOK THE ORAL TABLET AND VERIFIED MED TAKEN. LEFT PT ALONE IN ROOM AFTER STAYING IN ROOM WITH HIM FOR APPROX 5 MINUTES. CLOSED DOOR TO A CRACK AND STAYED OUTSIDE OF ROOM FOR APPROX 5 MINUTES TO MONITER WHETHER HE WOULD STAY IN HIS ROOM OR NOT. RECHECKED ON HIM JUST NOW AND HE IS LAYING ON VISITOR COUCH WITH HIS ARMS BEHIND HIS HEAD.
--- NOTE | 2019-12-06 16:07 | NUR ---
PT HAS CAME BACK OUT OF ROOM A FEW TIMES. SUITCASE HAD BEEN PUT IN HIS CLOSET AND CLOSET DOOR LOCKED IN AN EFFORT TO DECREASE THE VISUAL STIMULS TO LEAVE. ATTEMPTED TO CONVINCE PT TO CHANGE HIS CLOTHES INTO HOSPITAL CLOTHING BUT HE REFUSED TO DO THAT. LESS DIFFICULT TO REDIRECT BACK TO ROOM OR TO WINDOW AT THE END OF THE HALLWAY. STATES HIS SUITCASE IS MISSING AND HE DOESN'T KNOW WHERE IT IS.
--- NOTE | 2019-12-06 18:28 | NUR ---
SHIFT SUMMARY PT HAS BEEN CALMER THIS AFTERNOON AND MORE REDIRECTABLE WHEN HE COMES OUT OF HIS ROOM TO WALK IN THE HALLWAYS. HAS SAT IN CHAIR AT THE END OF HALLWAY SEVERAL TIMES THIS AFTERNOON. MORE UNSTEADY ON HIS FEET THIS AFTERNOON.
--- NOTE | 2019-12-07 05:37 | NUR ---
ROPE TOW OPERATOR SUMMARY NO ACUTE CHANGES THIS SHIFT. PT AAOX2 AND INDEPENDENT IN ROOM. DENIES PAIN, SOB, N/V. PT'S SUITCASE WAS LOCKED IN HIS CLOSET ON DAY SHIFT IN AN EFFORT TO REDUCE STIMULUS THAT MAY TRIGGER PT TO WANT TO LEAVE HOSPITAL. PT SPENT SOME TIME BEFORE BED LOOKING FOR HIS SUITCASE. PT HAS SLEPT THROUGH THE NIGHT WITH NO ISSUES. AWAITING PLACEMENT AT [facility]. VSS, WILL CONTINUE TO MONITOR.
--- NOTE | 2019-12-07 18:10 | NUR ---
SHIFT SUMMARY PTS SHOES PLACED IN CLOSET AND LOCKED WITH SUITCASE. WHEN CHECKING ON PT HE WOULD REPORT HIS SHOES AND SUITCASE HAD BEEN STOLEN SEVERAL DAYS AGO. WOULD EXPLAIN TO PT THAT HIS BELONGINGS ARE LOCKED UP AND SAFE AND WILL BE AVAILABLE WHEN HE DISCHARGES FROM HOSPITAL. HAS REMAINED IN ROOM TODAY WITH ONLY OCCASIONAL FORAYS INTO HALLWAY BUT WOULD RETURN TO HIS ROOM WITHOUT PROMPTING.
--- NOTE | 2019-12-08 05:05 | NUR ---
SHIFT SUMMARY NO ACUTE CHANGES TO REPORT THIS SHIFT. PT HAS RESTED WELL, HE DENIES NEEDS WHEN ASKED. A/OX3 AND ANSWERS MY QUESTIONS APPROPRIATELY. HE HAS RESTED MOST OF THE NIGHT. PLESANT AND COOPERATIVE WITH STAFF. VITALS STABLE. BED IN LOWEST POSITION, CALL LIGHT WITHIN REACH.
--- NOTE | 2019-12-08 10:44 | NUR ---
PT REFUSED SHOWER. SAYING THAT HE WILL BE GOING HOME AND WILL TAKE A SHOWER AT HOME BEFORE BED. ALSO OFFERED TO WASH HIS CLOTHES HE WAS WEARING.
--- NOTE | 2019-12-08 18:41 | NUR ---
SHIFT SUMMARY ANGE WAS CALM AND COOPERATIVE THIS MORNING, AND MOSTLY ORIENTED. GOT MORE AGITATED IN THE EARLY AFTERNOON AND WANTED TO LEAVE. GOT TWO DOSES OF PO SEROQUEL AND ONE OF SL ZYPREXA. EATING MEALS WELL, INDEP IN ROOM. EDUCATED AGAIN ON 2 MD HOLD, HE STILL DECLINES AN ATTOURNEY, DESPITE WANTING TO FIGHT THE HOSPITAL HOLD. CONTINENT. WCTM
--- NOTE | 2019-12-08 20:30 | NUR ---
PT RESTING COMFORTABLY IN BED WHILE WEARING PERSONAL CLOTHES; PT FOLLOWING SIMPLE VERBAL COMMANDS AND TALKING CALM VOICE.
--- NOTE | 2019-12-09 04:34 | NUR ---
SHIFT SUMMARY: 74 Y/O RESTED COMFORTABLY ALL SHIFT; DENIES PAIN OR NAUSEA; PT AT TIMES WANDERED HALLWAY BEGINNING OF SHIFT ASKING WHEN HE COULD LEAVE--NURSING STAFF WAS ABLE TO REDIRECT PATIENT; BED LOW POSITION WITH CALL LIGHT AT SIDE; REMOTE [employer] OBSERVATION INTACT.
--- NOTE | 2019-12-09 15:55 | NUR ---
PATIENT HAS BEEN TIRED AND SLEEPING MUCH OF THE DAY. COOPERATIVE WITH STAFF. COMMUNICATES NEEDS AND WANTS. VITALS ARE STABLE. NO ACUTE CHANGES TO REPORT ON AT THIS TIME. WILL CONTINUE TO MONITOR AND PROVIDE CARE NEEDED.
--- NOTE | 2019-12-09 23:05 | NUR ---
1935 THIS NURSE SET UP PATIENT FOR SHOWER WITH TOWELS/GOWN/SOAP/SHAMPOO AND OFFERED TO WASH/DRY HER PERSONAL CLOTHES ITS NOTED NO HYGIENE HAS BEEN PERFORMED LATELY. PT DECLINED AT THIS TIME OFFER.
--- NOTE | 2019-12-10 04:30 | NUR ---
SHIFT SUMMARY: 74 Y/O MALE RESTED COMFORTABLY ALL SHIFT; PT DECLINED TO SHOWER OR TO ALLOW NURSING STAFF TO WASH PERSONAL CLOTHES AFTER OFFERED BY STAFF; DENIES PAIN OR NAUSEA; PT IS ALERT AND ORIENTED X 2 AND ABLE TO FOLOW SIMPLE VERBAL COMMANDS.
--- NOTE | 2019-12-10 10:53 | NUR ---
PATIENT GOT AHOLD OF HIS LUGGAGE BAG THAT WAS APPARENTLY STORED AND LOCKED IN HIS ROOM CLOSED. THE PATIENT BECAME FOCUSED ON LEAVING THE FACILITY. HE PUSHED THROUGH THE DOUBLE DOORS OF THE SCU AND WAS ASKING STAFF HOW TO GET OUT OF THE FACILITY. STAFF DIRECTED HIM TO THE SCU THE EXIT. PATIENT DID NOT BUY INTO IT. SECURITY WAS CALLED FOR ASSISTANCE; PATIENT AMBULATED BACK TO HIS ROOM WHERE HE WAS GIVEN AN IM INJECTION OF ZYPREXA. LUGGAGE WAS RE-LOCKED UP IN THE CLOSET AND IT APPEARS THAT THE ZYPREXA HAS CALMED THE PATIENT, AT LEAST MILDLY.
--- NOTE | 2019-12-10 14:41 | NUR ---
SINCE PATIENT ATTEMPTED "ESCAPE" EARLIER THERE HAVE BEEN NO FURTHER EVENTS FROM HIM. VITALS HAVE BEEN STABLE, PATIENT HAS REMAINED IN ROOM AND COOPERATIVE WITH STAFF. NO FURTHER CHANGES NOTED TO REPORT OF AT THIS TIME. WILL CONTINUE TO MONITOR AND PROVIDE CARE NEEDED.
--- NOTE | 2019-12-11 06:39 | NUR ---
SHIFT SUMMARY NO ACUTE CHANGES THIS SHIFT. AOX3-UNAWARE SITUATION/MONTH, KNOWS THE YR, PRESIDENT, SELF & CAN FOLLOW SIMPLE DIRECTIONS. VSS. DENIES PAIN, N/V, OR DYSPNEA. PT WAS SLIGHTLY IRRITABLE @BEGINNING OF SHIFT & STATED HE WANTED TO LEAVE BUT WAS EASILY REDIRECTABLE & HASN'T TRIED LEAVING THIS SHIFT. IND IN ROOM. CALL LIGHT IN REACH. WCTM.
--- NOTE | 2019-12-11 17:03 | NUR ---
SUMMARY PT AWAKE IN BED WATCHING TV, PT HAS BEEN PLEASANT AND COOPERATIVE WITH CARE, INDEPENDENT IN THE ROOM, HAS ASKED WHEN HE CAN LEAVE SEVERAL TIMES, NO ATTEMPTS MADE TO LEAVE AT THIS TIME, PT IS ON A 2MD HOLD, NO COMPLAINTS, VSS, WILL CONT TO MONITOR
--- NOTE | 2019-12-12 07:09 | NUR ---
SHIFT SUMMARY NO ACUTE CHANGES THIS SHIFT. AOX2-UNAWARE PLACE (STATES HE'S IN [place] OR & DOESN'T KNOW WHAT BUILDING). DOES FOLLOW DIRECTIONS, KNOWS MIRTA IS PRESIDENT & CAN STATE HIS BIRTHDATE. WHEN ASKED WHAT THE DATE IS HE LOOKS AT THE WHITE BOARD & TELLS ME. VSS. HAD UNEVENTFUL EVENING. DENIES PAIN, NAUSEA, DYSPNEA. ASKED IF HE COULD GO HOME 1X BUT WAS EASILY REDIRECTABLE TO WHY HE NEEDED TO STAY IN HOSPITAL. IND IN ROOM. WAITING ON PLACEMENT.
--- NOTE | 2019-12-12 17:36 | NUR ---
SUMMARY PT RESTING IN BED WATCHING TV, PT HAS BEEN ASKING ABOUT HIS BELONGINGS AND ASKING TO LEAVE FOR MOST OF THE DAY, MED PER EMAR FOR AGITATION, PT INDEPENDENT IN THE ROOM, VSS, WILL CONT TO MONITOR
--- NOTE | 2019-12-13 00:19 | NUR ---
LATE NOTE: Patient refused all HS medications (including Keppra). Tried to explain risk of seizures not taking keppra, but patient only focused on our "stealing his clothes" which are actually locked in the closet in his room. Patient agitated, but not out of control. will continue close monitoring. Bed locked in low position and alarm on.
--- NOTE | 2019-12-13 03:21 | NUR ---
restaurant shift supervisor summary Other than single period of agitation at HS, patient was relaxed and slept all night. Twice this RN woke him when I checked in on him, however he continued to refuse medications. Once he agreed to go into bathroom and void in toilet. No complaints of discomfort. Alert to self and town. unsure of what kind of facility this is. Only interest that prevails is want to get clothes and leave.
--- NOTE | 2019-12-13 17:20 | NUR ---
TWO MD HOLD HAS .
--- NOTE | 2019-12-13 17:59 | NUR ---
SHIFT SUMMARY: NO EVENTS THIS SHIFT. PATIENT CALM AND COOPERATIVE, NAPPED A LITTLE. GOOD PO INTAKE. DENIED PAIN. USING BR INDEPENDENTLY. ASKED FOR HIS CLOTHING ONCE. DECLINED OFFERED HYGIENE. AWAITING PLACEMENT.
--- NOTE | 2019-12-14 03:53 | NUR ---
SUMMARY NO ISSUES NOTED. PT HAS BEEN SLEEPING T/O SHIFT. PT TOOK PM MEDS W/ OUT ISSUE. PT CURRENTLY SLEEPING AND IN NO DISTRESS. CALL LIGHT IN REACH.
--- NOTE | 2019-12-14 18:44 | NUR ---
SHIFT SUMMARY: NO ACUTE CHANGES TO REPORT THIS SHIFT. PT HX DEMENTIA; A&O X2-3; ANXIOUS-DESIRING TO LEAVE. NO C/O PAIN THIS SHIFT. PT INDEPENDENT IN ROOM. AWAITING PLACEMENT. WCTM.
--- NOTE | 2019-12-15 00:02 | NUR ---
0002 PT INVOLUNTARY HOLD IS
--- NOTE | 2019-12-15 04:14 | NUR ---
SUMMARY PT INVOLUNTARY HOLD . PT HAD NO ISSUES THIS SHIFT. PT HAS SLEPT T/O SHIFT, EXCEPT TO VOID. PT TOOK PM MEDS W/ OUT ISSUE. PT CURRENTLY SLEEPING IN NO DISTRESS. CALL LIGHT IN REACH AND BED ALARM ON.
--- NOTE | 2019-12-15 19:43 | NUR ---
SHIFT SUMMARY: NO ACUTE CHANGES TO REPORT THIS SHIFT. HX DEMENTIA; A&O X2-3; LABILE; COOPERATIVE WITH CARE. INDEPENDENT IN ROOM. 2-MD HOLD ; PT ANXIOUS TO LEAVE. AWAITING PLACEMENT IN [facility]. REPORT GIVEN TO ONCOMING RN.
--- NOTE | 2019-12-16 07:52 | NUR ---
SUPERVISOR CHLORINE LIQUEFACTION SUMMARY Sina slept well overnight. No complaints of discomfort or signs of agitation noted. Up independently in room.
--- NOTE | 2019-12-16 09:00 | NUR ---
PT PLEASANT COOP TALKATIVE. ALERT TO SELF & FAM. DISCUSSED PRIOR OCCUPATION BEAUTY SPECIALIST. H/R REG, NO MURMER NOTED. NO TELE, LUNGS CLEAR, RESP EASY, UNLABORED. ON R.A. BT X4 LAST BM 2 DAYS PER PT. VOIDS INDEPENDANT TO BATHROOM. STATES HAS SOME NUMBNESS ON LEFT FOOT R/T PRIOR CVA RESIDUAL. BED IN LOW POSITION, CALL LITE IN REACH, CALLS APPROP
--- NOTE | 2019-12-16 10:00 | NUR ---
PT STATES NORMAL STOOL TODAY
--- NOTE | 2019-12-16 17:29 | NUR ---
PT PLEASANT TODAY. DENIES PAIN . WATCHING TV MOST OF DAY. HAS BEEN TO BATHROOM. WALKING ABOUT ROOM CHOOSES. NO NEW CONCERNS AT THIS TIME. BED IN LOW POSITION, CALL LITE IN REACH, CALLS APPROP
--- NOTE | 2019-12-17 10:00 | NUR ---
PT PLEASANT COOP A/O TO SELF AND PRESIDENT. KNOWS YEAR. 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 H/R REG, NO MURMER NOTED. LUNGS CLEAR, RESP EASY, UNLABORED. ON R.A. BT X4 LAST BM YEST PER PT. VOIDS INDEPENDANT TO BATHROOM. BED IN LOW POSITION, CALL LITE IN REACH, PT PENDING D/C TO [facility].
--- NOTE | 2019-12-17 18:36 | NUR ---
PT PLEASANT TODAY. NO C/O PAIN, NO NEW CONCERNS TODAY. HAS BEEN DRESSED READY TOGO TODAY. BED IN LOW POSITION, CALL LITE IN REACH, CALLS APPROP
--- NOTE | 2019-12-18 02:09 | NUR ---
At 2200, patient called from room requesting pain med. When asked about his pain, Sina stated that he was having pain in his right ankle due to twisting it earlier in the afternoon coming out of the bathroom. he stated he didn't fall, and the ankle wasn't painful until 2200 when he called. Elevated right foot on pillows. patient refused ice. Notified evening hospitalist of situation and was given order for tylenol and requested to notify if pain unresolved in 2-3 hours nd xray would be ordered. At 0155, Night hospitalist was notified that patient stated no pain and swelling appeared to have receded. Patient refused to try to ambulate on it at this time. No new orders from night hospitalist.
--- NOTE | 2019-12-18 07:38 | NUR ---
HEAVY EQUIPMENT FIELD MECHANIC SUMMARY Patient was visualized ambulating in room from bathroom. His gait was careful and tender on his right foot. Swelling greatly reduced this morning after resting with it elevated. Patient states "as long as I can get a foot in a shoe, they're not keeping me here."
--- NOTE | 2019-12-18 16:41 | NUR ---
PATIENT HAD A VERY EVENTFUL DAY. HE STARTED THE DAY BY ASKING IF I WOULD OPEN THE CLOSET IN HIS ROOM SO HE COULD GET HIS BAG. HE DECIDED THAT HE DID NOT NEED THE BAG TO LEAVE AND WAS GOING TO LEAVE WITH OUT IT. THE PATIENT BEGAN TO PACE THE SCU TRIVEDI LOOKING FOR A WAY TO GET OUT. AT ONE POINT HE DID GET OUT THE DOUBLE DOORS AND STAFF MEMBERS WERE ABLE TO TALK HIM BACK INTO THE SCU PRETTY EASILY. I DID END UP GIVING HIM SOME IM ZYPREXA WHICH HE ALLOWED ME TO GIVE WITHOUT A FIGHT, AND IT CALMED HIM MINIMALLY HOWEVER MADE HIS GAIT EVEN MORE UNSTEADY. WE HAVE HAD TO MONITOR HIM CLOSELY, TO KEEP HIM FROM GETTING TOO CLOSE TO THE DOORS AND WE CONTINUE TO DO SO. WILL WILL CONTINUE TO MONITOR CLOSELY AND PROVIDE CARE.
--- NOTE | 2019-12-18 19:19 | NUR ---
CALLED SCU MONITOR VERIFIED THAT THIS PT IS ON CAMERA
--- NOTE | 2019-12-19 04:28 | NUR ---
SHIFT SUMMARY ADMITTED FOR DEMENTIA W/BEHAVIORAL DISTURBANCE. FULL CODE. HE IS CONFUSED. AWAITING PLACEMENT IN A SNF. I WAS GIVEN IN REPORT THAT HE DOES TRY TO ESCAPE THE SCU, BUT HE HAS NOT DONE THAT YET THIS SHIFT. HE IS ON RA, REGULAR DIET. NO NEW CONCERNS THIS SHIFT
--- NOTE | 2019-12-19 17:03 | NUR ---
patient had an uneventful day with no acute events. Spent the majority of the day sleeping. did not pace the christian today. vitals have been stable and WNL. Will continue to monitor and provide care as needed.
--- NOTE | 2019-12-19 19:25 | NUR ---
ASSUMED CARE RECEIVED REPORT FROM ASIA CHRISTIAN. ASSUMED CARE OF PT. ASLEEP AT THIS TIME, DENIES NEEDS. CALL LIGHT, POSSESSIONS IN REACH, BED ALARM ON. WILL CONTINUE TO MONITOR.
--- NOTE | 2019-12-20 04:22 | NUR ---
SHIFT SUMMARY PT HAS SLEPT T/O MUCH OF THE NIGHT. AMBULATED WITH SBA PRN. ANKLE SWELLING APPEARS TO BE IMPROVING, PT VOICED NO C/O PAIN OR DISCOMFORT. PT DENIES NEEDS AT THIS TIME, CALL LIGHT, POSSESSIONS IN REACH. WILL CONTINUE TO MONITOR PT CONDITION AND PROVIDE CARE NEEDED UNTIL DAY RN ASSUMES CARE.
--- NOTE | 2019-12-20 17:42 | NUR ---
PATIENT IS ALERT AND ORIENTED TO SELF AND FOLLOWING DIRECTIONS. HE IS CONFUSED ABOUT WHERE HE IS AND WHY HE IS HERE. PATIENT HAS BEEN COOPERATIVE TODAY. HE HAS HAD NO COMPLAINTS AT ALL. HE HAS STAYED IN ROOM AND WATCHED TV. WILL CONTINUE TO MONITOR
--- NOTE | 2019-12-21 07:40 | NUR ---
CIGARETTE CARTON SEALER SUMMARY Patient slept well. Still forgettng to call and getting oob to bathroom by himself. Gait still slightly unsteady, but appears to be improving. No complaints of pain or discomfort. Patient states right ankle feels much better. One witnessed episode of hallucinations just before HS when patient came out of bathroom and asked me where all his friends had gone so quickly. He had no further episodes. Pleasant and cooperative with care.
--- NOTE | 2019-12-21 11:57 | NUR ---
HE HAS HAD NO COMPLAINTS AND BEEN CALM AND COOPERATIVE. HIS APPETITE IS GOOD.
--- NOTE | 2019-12-21 14:27 | NUR ---
I LET HIM KNOW HIS BROTHER AND ARACELIS CALLED TO SEE HOW HE IS DOING. RIGHT AWAY HE ASKED IF THEY ARE COMING TO TAKE HIM HOME. I SAID NO. WE TALKED ABOUT HIS CAREER A LEDGE MAN AND LATER A GLASS AND THAT HE JUST BUILT HIS HOUSE A FEW YEARS AGO.
--- NOTE | 2019-12-21 17:49 | NUR ---
PT KEEPS TURNING OFF BED ALARM AND GETS UP, PT SHUT OFF ALARM AND WALKED ACROSS HALLWAY TOOK THE DINNER TRAY FROM 352 AND ATE IT, TOOK 353 TRAY TO HIM WELL, PT WONT LEAVE BED ALARM ON, KEEPS GETTING UP.
--- NOTE | 2019-12-21 18:19 | NUR ---
HE HAS HAD NO COMPLAINTS TODAY. HE HAD BEEN UP AD HINA IN THE ROOM BUT PHYSICAL THERAPY EVALUATED HIM THIS AFTERNOON AND SAYS HIS BALANCE IS UNRELIABLE. HE NEEDS CGA. THIS ASSESMENT UPSETS HIM. HE UNDERSTANDS THAT THE BED ALARM NEEDS TO BE ON BUT HE HATES IT AND REACHES DOWN TO TURN IT OFF WITHOUT IT ALARMING FIRST. HE REFUSES TO CALL. ALSO HE WALKED JUST OUTSIDE THE ROOM AT DINNERTIME AND GRABBED THE WRONG DINNER TRAY, TOOK IT IN HIS ROOM AND ATE IT. IT WAS AN EARLY TRAY ON A DC PATIENT THAT HE SAW SITTING ON THE NEARBY COUNTER. I HAVE ALERTED THE CAMERA MONITOR TECHS TO CALL US WHEN HE STARTS TO MOVE. HE UNDERSTANDS THAT WE SAY HE IS A FALL RISK BUT HE DOES NOT AGREE. HIS RT ANKLE IS A LITTLE LARGER THAN HIS LEFT. HE DENIES ANY PAIN OR N/T. NO VISITORS BUT HIS BROTHER AND ARACELIS CALLED.
--- NOTE | 2019-12-22 06:47 | NUR ---
BIG DATA DEVELOPER SUMMARY pATIENT CONTINUES TO GET UP WITHOUT CALLING FOR HELP. STATES HE DOESN'T WANT TO BOTHER US. ALL STAFF REASSURED HIM THAT WE WANTED TO KEEP HIM SAFE. eND OF THE EVENING, WE ENDED UP INFORMING HIM THAT WE HAD TO TURN ON THE CAMERA SO WE WOULD KNOW WHEN HE WAS GETTING UP ( HE WOULD REACH DOWN AND TURN OFF BED ALARM) BED ALARM COVER WAS TAPED CLOSED AFTER THAT, AND PATIENT STAYED QUITE AND SLEPT THROUGH THE NIGHT.
--- NOTE | 2019-12-22 09:02 | NUR ---
HE WOKE UP FOR BREAKFAST, ATE 100% AND NOW HAS HIS EYES CLOSED. WHILE GIVING HIM HIS MORNING MEDICINES, I AGAIN ENCOURAGED HIM TO USE HIS NURSE CALL LIGHT SO WE CAN WALK BESIDE HIM WHEN HE IS OOB. HE DIDN'T COMMENT.
--- NOTE | 2019-12-22 17:10 | NUR ---
NO CHANGES TODAY. NO COMPLAINTS. HE SAYS HE JUST WISHES HE COULD GET SOMEONE TO PICK HIM UP. HE DOESN'T ASK FOR ANY PHONE NUMBERS OR MAKE ANY ATTEMPTS. HE IS AMBULATORY. HE HAS SET THE ALARM OFF BUT IS SITTING ON THE SIDE OF THE BED WAITING FOR US WHEN WE GET THERE. HE USED HIS CALL LIGHT ONCE. HE WAS TALKING TO HIS DAUGHTER ON THE PHONE. SHE NEEDED A INSURANCE NUMBER OFF HIS CARD AND HE COULDN'T READ IT. THE WILDLIFE BIOLOGY INTERNSHIP READ IT TO HER FOR HIM.
--- NOTE | 2019-12-23 07:45 | NUR ---
SHIFT SUMMARY PATIENT ALERT AND CONFUSED. PATIENT FIGURED OUT HOW TO TURN HIS BED ALARM OFF SO IT WOULDN'T SOUND WHEN HE GOT UP TO USE THE BATHROOM. CHAIR ALARM PLACED UNDER PATIENT ADDITIONAL SAFETY DEVICE. PATIENT SLEPT WELL MOST OF THE NIGHT. BED IN LOWEST POSITION WITH WHEELS LOCKED AND ALARM ON. CALL LIGHT WTIHIN REACH. REPORT GIVEN TO ONCOMING RN.
--- NOTE | 2019-12-24 06:44 | NUR ---
SHIFT SUMMARY PATIENT ALERT, BUT MINIMALLY ORIENTED OVERNIGHT. PATIENT HAD NO ACUTE CHANGES AND HAD NO COMPLAINTS OVERNIGHT. PATIENT SLEPT WELL AND HAD MINIMAL NEEDS. BED IN LOWEST POSITION WITH WHEELS LOCKED. CALL LIGHT WITHIN REACH. REPORT GIVEN TO ONCOMING RN.
--- NOTE | 2019-12-25 06:35 | NUR ---
SHIFT SUMMARY PATIENT STAYED IN HIS BED ALL NIGHT AND SLEPT. NO ACUTE EVENTS OVERNIGHT. BED IN LOWEST POSITION WITH WHEELS LOCKED. CALL LIGHT WITHIN REACH. REPORT GIVEN TO ONCOMING RN.
--- NOTE | 2019-12-25 16:45 | NUR ---
Shift Summary A/Ox2, thought he was in [facility] in [place] this morning. Easily redirectable and pleasant. Independent in room, no behavioral disturbances notes this shift. Patient is eager to go home and wanting family to pick him up. Appetite is good, cooperative with care. Worked with therapy today. No acute changes. Will continue to monitor.
--- NOTE | 2019-12-26 05:17 | NUR ---
SHIFT SUMMARY NO ACUTE CHANGES THIS SHIFT. AOX3-UNAWARE PLACE OR EXACT DATE W/O READING THE WHITE BOARD. DOES ANSWER ALL YES/NO QUESTIONS APPROPRIATE. VSS. DENIES PAIN, N/V OR DYSPNEA. AWAITING PLACEMENT. PLEASENT & COOPERATIVE W/CARE. CALL LIGHT IN REACH. WCTM.
--- NOTE | 2019-12-26 16:29 | NUR ---
Shift Summary A/O to self and hospital/city. Unsure of date/year unless looking at the white board. No behavioral issues noted. No changes in patient assessment and condition. Telepsych consult scheduled with Dr. Aguila @ [address] [place] [address]. Will report to oncoming RN.
--- NOTE | 2019-12-27 06:42 | NUR ---
SHIFT SUMMARY NO ACUTE CHANGES THIS SHIFT. AOX2, UNAWARE TOWN, DATE OR SITUATION. VSS. DENIES PAIN, NAUSEA, OR DYSPNEA. PLAN FOR TELE PSYCH CONSULT c [employer] PILOT ON DAY SHIFT TODAY. AWAITING PLACEMENT. CALL LIGHT IN REACH.
--- NOTE | 2019-12-27 10:32 | NUR ---
PATIENT PACKED AND WANTING TO GO HOME. LEFT MESSAGES ON VOICE MAIL OF BROTHER RAKESH AND DAUGHTER CLAYTON TO GIVE US A CALL. PATIENT NOT ON A HOLD PER "NOT A DANGER TO HIMSELF OR OTHERS." SIGNS AMA. WALKS OUT WITH SECURITY. STEADY GAIT.
--- NOTE | 2019-12-27 10:35 | NUR ---
PER DR. ALTAMIRANO PATIENT NOT ON HOLD, WAS WHEN ADMITTED BUT NOT NOW. PER MD "NOT A DANGER TO SELF OR OTHERS".PER SLOOP CAPTAIN (TING) NOT ON 2 MD HOLD. PER UNIT CHARGE (BRIAN) CAN NOT HOLD PATIENT.
--- NOTE | 2019-12-27 10:40 | NUR ---
PER; RADIOLOGY PHYSICIAN ASSISTANT(TING), CHARGE (BRIAN), CARE MANAGEMENT (ETIENNE) AND PATIENT NOT ON HOLD. WAS ON 2 MD HOLD WHEN HE CAME IN IN OCTOBER AND HAD COURT ORDER 12/05/19 WHICH WAS GOOD FOR 5 DAYS. UNABLE TO DETAIN PATIENT. PATIENT ADAMENT HE WANTSTOLEAVE.SIGNS AMA FORM. UNABLE TO CONVINCE PATIENT TO STAY.
--- NOTE | 2019-12-27 10:42 | NUR ---
PATIENT COMES BACK TO ROOM. RN ATTEMPT TO GET PATIENT TO STAY. ADVISED TODAY THERE IS ANOTHER TELE CONFERENCE WITH PATIENT AND SEED POTATO CUTTER. PATIENT STS HE HAS BEEN HERE 3 WEEKS AND WANTS TO GO HOME. WHEN ASKED HOW HE WILL GET HOME STS WILL WALK. PATIENT STS HE ALREADY TALKED TO MD VIA "TV" (TELEPSYCH) AND "THEY SAID HE COULD GO HOME TODAY." PATIENT STS HE LIVES WITH HIS DAUGHTER AND WANTS TO GO HOME. PER , HE FEELS LIKE PATIENT IS IN HIS RIGHT STATE OF MIND AND NOT A HARM TO HIMSELF OR TO OTHERS. PATIENT FULLY DRESSED HIMSELF AND PACKED HIS SUITCASE. PATIENT HAD HIS SUITCASE IN HAND WHEN HE LEFT AGAIN WITH SECURITY BY HIS SIDE. PATIENTS GAIT WAS EVEN AND STEADY. INSURANCE PROCESSING CLERK AND MYSELF TRIED TO CONVINCE PATIENT TO STAY. PATIENT WAS DETERMINED TO LEAVE AND DID SO.
== END 2019-12-27 10:45 | disposition left against medical advice (07) ==
LOC: ER 20:10 → ICUW 20:11 → MEDS 11-24 05:07
PROVIDERS: Physician Assistant; ADMIT Internal Medicine
DX: F03.91 Unspecified dementia, unspecified severity, with behavioral disturbance (principal); E78.5 Hyperlipidemia, unspecified; F41.9 Anxiety disorder, unspecified; G40.909 Epilepsy, unspecified, not intractable, without status epilepticus; Z86.73 Personal history of transient ischemic attack (TIA), and cerebral infarction without residual deficits; Z53.29 Procedure and treatment not carried out because of patient's decision for other reasons
CPT/HCPCS: 36415; 80053; 81003; 84443; 85025; 96372; 97116; 97161; 97530; 99285; A9270; A9270-GY; G0378; G0480; J1650

== ENCOUNTER 2020-03-15 10:49 | Emergency (ER) | payer OTHER ==
[~2020-03-15] VITALS: Ht 180.3 cm; Wt 95.2 kg
[~2020-03-15 10:49] MED LIST changes: +ALBU90OI INH; +KEPPRA1000 MG PO
[2020-03-15 11:13] LABS: BASOPHILS ABSOLUTE AUTO 0.08 K/mm3 (0.00-0.23); BASOPHILS PERCENT AUTO 1 % (0-2); EOSINOPHILS ABSOLUTE AUTO 0.17 K/mm3 (0.00-0.68); EOSINOPHILS PERCENT AUTO 2 % (0-6); Hematocrit 41.5 % (37.0-53.0); Hemoglobin 13.2 g/dL (13.5-17.5); IMMATURE GRAN ABSOLUTE AUTO 0.03 K/mm3 (0.00-0.10); IMMATURE GRAN PERCENT AUTO 0 % (0-1); LYMPHOCYTES ABSOLUTE AUTO 1.77 K/mm3 (0.84-5.20); LYMPHOCYTES PERCENT AUTO 17 % (21-46); MONOCYTES ABSOLUTE AUTO 0.73 K/mm3 (0.16-1.47); MONOCYTES PERCENT AUTO 7 % (4-13); Mean Corpuscular HGB 29.4 pg (26.0-34.0); Mean Corpuscular HGB Conc 31.8 g/dL (31.5-36.5); Mean Corpuscular Volume 92 fL (80-100); Mean Platelet Volume 10.9 fL (9.1-12.4); NEUTROPHILS PERCENT AUTO 73 % (41-73); Platelet Count 233 K/mm3 (150-400); Red Blood Cell Count 4.49 M/mm3 (4.30-5.90); White Blood Cell Count 10.28 K/mm3 (4.00-11.30)
[2020-03-15 11:37] LABS: Alanine Aminotransfer (ALT/SGP 29 U/L (12-78); Albumin, Blood 3.6 g/dL (3.4-5.0); Albumin/Globulin Ratio 0.9 (0.8-1.8); Alk Phos 93 U/L (50-136); Anion Gap 3 mmol/L (6-16); Aspartate Aminotrans (AST/SGOT 14 U/L (12-37); Bilirubin, Total 0.6 mg/dL (0.1-1.0); Blood Urea Nitrogen 21 mg/dL (8-24); Bun/Creatinine Ratio 19.1 (12.0-20.0); CO2, Blood 29 mmol/L (21-32); Calcium, Blood 8.5 mg/dL (8.5-10.1); Chloride, Blood 110 mmol/L (98-108); Globulin, Blood 4.1 g/dL (2.2-4.0); Glomerular Filtration Rate >60 (60-); Glucose, Blood 143 mg/dL (70-99); Potassium, Blood 4.1 mmol/L (3.5-5.5); Sodium, Blood 142 mmol/L (136-145); Total Protein, Blood 7.7 g/dL (6.4-8.2)
== END 2020-03-15 14:37 | disposition home or self-care (01) ==
LOC: ER 10:49
PROVIDERS: Emergency Medicine
DX: G40.909 Epilepsy, unspecified, not intractable, without status epilepticus (principal); R05 Cough; G30.9 Alzheimer's disease, unspecified; F02.80 Dementia in other diseases classified elsewhere, unspecified severity, without behavioral disturbance, psychotic disturbance, mood disturbance, and anxiety; E78.5 Hyperlipidemia, unspecified; Z60.9 Problem related to social environment, unspecified; Z79.02 Long term (current) use of antithrombotics/antiplatelets; Z79.899 Other long term (current) drug therapy
CPT/HCPCS: 36415; 71045; 80053; 85025; 93005; 93010; 99285-25

== ENCOUNTER → 2020-05-27 | Outpatient (CLI) | payer OTHER ==
[~2020-05-27] MED LIST changes: +ACET325 PO; +BISA10S; +DULCOLAX400 MG/5 M PO; +LOPE2C PO; +MELATONIN5 M1 PO; +MYLANTA MAXIMUM10 ML PO; +OLAN10A MM; +OLAN5 PO; +RISP.25 PO; +Seroquel Xr50 MG PO
[2020-05-27 13:06] LABS: Source, Urine Clean Catch
[2020-05-27 14:13] LABS: Appearance, Urine Clear (Clear); Bilirubin, Urine Neg (Neg); Blood, Urine Neg (Neg); Color, Urine Yellow (P-Yellow); Glucose Qualitative, Urine Neg (Neg); Ketones, Urine Neg (Neg); Leukocyte Esterase, Urine Neg (Neg); Nitrite, Urine Neg (Neg); Protein, Urine Neg (Neg); Specific Gravity, Urine 1.015 (1.003-1.022); Urobilinogen, Urine NORM (Normal)
== END | disposition home or self-care (01) ==
LOC: LAB 13:03 → LAB SHORT 13:03
PROVIDERS: Student in an Organized Health Care Education/Training Program
DX: N39.0 Urinary tract infection, site not specified (principal)
CPT/HCPCS: 81003

== ENCOUNTER → 2020-06-12 | Outpatient (CLI) | payer OTHER ==
[2020-06-12 13:10] LABS: Source, Urine Clean Catch
[2020-06-12 16:27] LABS: Appearance, Urine Clear (Clear); Bilirubin, Urine Neg (Neg); Blood, Urine Neg (Neg); Color, Urine Yellow (P-Yellow); Glucose Qualitative, Urine Neg (Neg); Ketones, Urine Neg (Neg); Leukocyte Esterase, Urine Neg (Neg); Nitrite, Urine Neg (Neg); Protein, Urine Neg (Neg); Specific Gravity, Urine 1.005 (1.003-1.022); Urobilinogen, Urine NORM (Normal)
== END | disposition home or self-care (01) ==
LOC: LAB SHORT 13:00 → LAB 13:00
PROVIDERS: Student in an Organized Health Care Education/Training Program
DX: N39.0 Urinary tract infection, site not specified (principal)
CPT/HCPCS: 81003

== ENCOUNTER 2020-06-25 23:09 | Emergency (ER) | payer OTHER ==
[~2020-06-25] VITALS: Ht 180.3 cm; Wt 95.2 kg
[~2020-06-25 23:09] MED LIST changes: -ACET325 PO; -BISA10S; -DULCOLAX400 MG/5 M PO; -LOPE2C PO; -MELATONIN5 M1 PO; -MYLANTA MAXIMUM10 ML PO; -OLAN10A MM; -OLAN5 PO; -RISP.25 PO; -Seroquel Xr50 MG PO
[2020-08-30] MEDS ORDERED: MELATONIN5 M1 PO (10:18)
[2020-08-30] MEDS ORDERED: OLAN10A MM (10:19)
[2020-08-30] MEDS ORDERED: OLAN5 PO (10:19)
[2020-08-30] MEDS ORDERED: RISP.25 PO (10:20)
[2020-08-30] MEDS ORDERED: Seroquel Xr50 MG PO (10:20)
[2020-08-30] MEDS ORDERED: ACET325 PO (10:21)
[2020-08-30] MEDS ORDERED: MYLANTA MAXIMUM10 ML PO (10:21)
[2020-08-30] MEDS ORDERED: LOPE2C PO (10:22)
[2020-08-30] MEDS ORDERED: BISA10S (10:22)
[2020-08-30] MEDS ORDERED: DULCOLAX400 MG/5 M PO (10:23)
== END 2020-06-25 23:40 | disposition home or self-care (01) ==
LOC: ER 23:09
DX: S70.01XA Contusion of right hip, initial encounter (principal); E78.00 Pure hypercholesterolemia, unspecified; Z79.899 Other long term (current) drug therapy; W19.XXXA Unspecified fall, initial encounter
CPT/HCPCS: 73502; 99284-25

== ENCOUNTER 2020-10-27 15:43 | Emergency (ER) | payer OTHER ==
[~2020-10-27] VITALS: Ht 177.8 cm; Wt 99.8 kg
[~2020-10-27 15:43] MED LIST changes: +ACET325 PO; +BISA10S; +DULCOLAX400 MG/5 M PO; +LOPE2C PO; +MELATONIN5 M1 PO; +MYLANTA MAXIMUM10 ML PO; +OLAN10A MM; +OLAN5 PO; +RISP.25 PO; +Seroquel Xr50 MG PO
== END 2020-10-27 19:09 | disposition home or self-care (01) ==
LOC: ER 15:43
DX: Z04.3 Encounter for examination and observation following other accident (principal); Z79.02 Long term (current) use of antithrombotics/antiplatelets; Z79.899 Other long term (current) drug therapy; E78.00 Pure hypercholesterolemia, unspecified; W18.30XA Fall on same level, unspecified, initial encounter; Y92.009 Unspecified place in unspecified non-institutional (private) residence as the place of occurrence of the external cause; F03.90 Unspecified dementia, unspecified severity, without behavioral disturbance, psychotic disturbance, mood disturbance, and anxiety
CPT/HCPCS: 70450; 82947; 93005; 93010; 99285-25

== ENCOUNTER 2020-11-12 17:29 | Emergency (ER) | payer OTHER ==
[~2020-11-12] VITALS: Ht 182.9 cm; Wt 90.7 kg
== END 2020-11-12 22:36 | disposition home or self-care (01) ==
LOC: ER 17:29
DX: S51.011A Laceration without foreign body of right elbow, initial encounter (principal); E78.00 Pure hypercholesterolemia, unspecified; Z79.02 Long term (current) use of antithrombotics/antiplatelets; Z79.899 Other long term (current) drug therapy; W01.10XA Fall on same level from slipping, tripping and stumbling with subsequent striking against unspecified object, initial encounter
CPT/HCPCS: 12001; 73070; 90471; 90714; 99283-25

== ENCOUNTER 2021-02-05 08:24 | Inpatient (IN) | payer OTHER ==
[~2021-02-05] VITALS: Ht 177.8 cm; Wt 86.2 kg
[2021-02-05 08:52] LABS: BASOPHILS ABSOLUTE AUTO 0.09 K/mm3 (0.00-0.23); BASOPHILS PERCENT AUTO 1 % (0-2); EOSINOPHILS ABSOLUTE AUTO 0.52 K/mm3 (0.00-0.68); EOSINOPHILS PERCENT AUTO 4 % (0-6); Hematocrit 37.8 % (37.0-53.0); Hemoglobin 12.6 g/dL (13.5-17.5); IMMATURE GRAN ABSOLUTE AUTO 0.07 K/mm3 (0.00-0.10); IMMATURE GRAN PERCENT AUTO 1 % (0-1); LYMPHOCYTES ABSOLUTE AUTO 3.51 K/mm3 (0.84-5.20); LYMPHOCYTES PERCENT AUTO 27 % (21-46); MONOCYTES ABSOLUTE AUTO 0.93 K/mm3 (0.16-1.47); MONOCYTES PERCENT AUTO 7 % (4-13); Mean Corpuscular HGB 30.4 pg (26.0-34.0); Mean Corpuscular HGB Conc 33.3 g/dL (31.5-36.5); Mean Corpuscular Volume 91 fL (80-100); Mean Platelet Volume 10.8 fL (9.1-12.4); NEUTROPHILS ABSOLUTE AUTO 7.75 K/mm3 (1.96-9.15); NEUTROPHILS PERCENT AUTO 60 % (41-73); Platelet Count 227 K/mm3 (150-400); RDW Coefficient Variation 12.7 % (11.7-14.2); RDW Standard Deviation 42.2 fL (35.1-46.3); Red Blood Cell Count 4.14 M/mm3 (4.30-5.90); White Blood Cell Count 12.87 K/mm3 (4.00-11.30)
[2021-02-05 09:03] LABS: Alanine Aminotransfer (ALT/SGP 26 U/L (12-78); Albumin, Blood 2.7 g/dL (3.4-5.0); Albumin/Globulin Ratio 0.6 (0.8-1.8); Alk Phos 120 U/L (50-136); Anion Gap 11 mmol/L (6-16); Aspartate Aminotrans (AST/SGOT 26 U/L (12-37); Bilirubin, Total 0.9 mg/dL (0.1-1.0); Blood Urea Nitrogen 11 mg/dL (8-24); Bun/Creatinine Ratio 9.9 (12.0-20.0); CO2, Blood 23 mmol/L (21-32); Calcium, Blood 8.8 mg/dL (8.5-10.1); Chloride, Blood 106 mmol/L (98-108); Creatinine, Blood 1.11 mg/dL (0.60-1.20); Globulin, Blood 4.3 g/dL (2.2-4.0); Glomerular Filtration Rate >60 (60-); Glucose, Blood 228 mg/dL (70-99); Potassium, Blood 3.6 mmol/L (3.5-5.5); Sodium, Blood 140 mmol/L (136-145); Troponin I 0.131 ng/mL (0.000-0.040)
[2021-02-05 10:11] LABS: Source, Urine Catheter
--- NOTE | 2021-02-05 10:31 | NUR ---
ED Palliative Care Consult Spoke with Dr Sanchez and discussed case. 75 year old male to the ED for AMS. Pt collapsed and became unresponsive. Pt is experiencing poor oxygen saturations and low B/P. Pt has history of Dementia with violent outbursts, CVA, Siezures, Anxiety, and multiple falls. Dr Sanchez has attempted to contact Pt's guardian Mckenzie with no success. No POLST on file. Called [place] POLST Registry and they report no POLST on file. Spoke with Play Therapist Virginia and discussed case. Virginia has spoken with facility staff at [facility]. Pt has shown significant decline recently requiring more care and increase with confusion. Spoke with sheila Rincon and discussed case. Provided update and discussed goals of care. Mckenzie reports Pt would not want anything agressive including No CPR, No Intubation, No Cardiac procedures. Mckenzie is thinking that Pt has reached a point in his life that hospice may be appropriate but would like to discuss further with a family member and facility staff before making that decision. Mckenzie is agreeable to have Pt admitted for symptom management until goals of care can be further discussed. Mckenzie is agreeable to complete POLST once ch[facility] goals are established. Spoke with Dr Escobedo and discussed case. Dr Escobedo will examine Pt then call Mckenzie. Palliative Care will remain available.
[2021-02-05 10:34] LABS: International Normalized Ratio 1.09; Prothrombin Time Results 11.4 Sec (9.7-11.5)
[2021-02-05 10:38] LABS: SARS-Cov-2 (COVID-19) PCR, MMC NEGATIVE (NEGATIVE)
[2021-02-05 10:50] LABS: Appearance, Urine Hazy (Clear); Bilirubin, Urine Neg (Neg); Blood, Urine 2+ (Neg); Color, Urine Yellow (P-Yellow); Glucose Qualitative, Urine Neg (Neg); Ketones, Urine Neg (Neg); Leukocyte Esterase, Urine 3+ (Neg); Nitrite, Urine Neg (Neg); Protein, Urine 2+ (Neg); Urobilinogen, Urine NORM (Normal)
[2021-02-05 10:54] LABS: Bacteria Many /hpf; Renal Epithelial Mod /hpf (0-Rare); Squamous Epithelial Cells Rare /hpf (Few)
[2021-02-05] MEDS ORDERED: ATOR40TA PO (11:42)
--- NOTE | 2021-02-05 20:13 | NUR ---
Awake and unable to give history, non-verbal . Admitted with acute respiratory failure with hypoxia. On 6 L n/c . no SOB noted. Continue on heparin drip which started at ER, TROPONIN was 1.76 and admitting Hospitalist was notified. miller in place, draining clear yellow urine .NPO till further assesment is done. Continue to monitor.
[2021-02-06 02:54] LABS: BASOPHILS ABSOLUTE AUTO 0.05 K/mm3 (0.00-0.23); BASOPHILS PERCENT AUTO 0 % (0-2); EOSINOPHILS ABSOLUTE AUTO 0.01 K/mm3 (0.00-0.68); EOSINOPHILS PERCENT AUTO 0 % (0-6); Hematocrit 37.4 % (37.0-53.0); Hemoglobin 12.5 g/dL (13.5-17.5); IMMATURE GRAN ABSOLUTE AUTO 0.06 K/mm3 (0.00-0.10); IMMATURE GRAN PERCENT AUTO 0 % (0-1); LYMPHOCYTES ABSOLUTE AUTO 2.05 K/mm3 (0.84-5.20); LYMPHOCYTES PERCENT AUTO 15 % (21-46); MONOCYTES ABSOLUTE AUTO 1.25 K/mm3 (0.16-1.47); MONOCYTES PERCENT AUTO 9 % (4-13); Mean Corpuscular HGB 30.6 pg (26.0-34.0); Mean Corpuscular HGB Conc 33.4 g/dL (31.5-36.5); Mean Corpuscular Volume 92 fL (80-100); NEUTROPHILS ABSOLUTE AUTO 10.75 K/mm3 (1.96-9.15); NEUTROPHILS PERCENT AUTO 76 % (41-73); Platelet Count 215 K/mm3 (150-400); RDW Coefficient Variation 12.9 % (11.7-14.2); RDW Standard Deviation 42.8 fL (35.1-46.3); Red Blood Cell Count 4.08 M/mm3 (4.30-5.90); White Blood Cell Count 14.17 K/mm3 (4.00-11.30)
[2021-02-06 03:24] LABS: Albumin/Globulin Ratio 0.7 (0.8-1.8); Calcium, Blood 9.2 mg/dL (8.5-10.1); Creatinine, Blood 1.27 mg/dL (0.60-1.20); Globulin, Blood 4.4 g/dL (2.2-4.0); Potassium, Blood 3.8 mmol/L (3.5-5.5); Total Protein, Blood 7.4 g/dL (6.4-8.2)
[2021-02-06 03:38] LABS: Troponin I 1.11 ng/mL (0.000-0.040)
--- NOTE | 2021-02-06 05:17 | NUR ---
PATIENT HAD A FAIR SHIFT. HIS VS ARE STABLE. HE IS PULLING ON ESSENTIAL LINES AND TUBES. THE CHILD CARE COOK HIS THE ESSENTIAL TUBE AWAY FROM HIM, AND ALSO DISTRACTED HIM. WILL CONTINUE TO MONITOR.
--- NOTE | 2021-02-06 10:26 | NUR ---
Case Conference Note Spoke with Primary RN Emil, [place] Rafting Guide Nancie, and Dr Escobedo. Discussed case and plan. Pt currently down to imaging. Dr Escobedo will discuss with Pt's guardian regarding goals for detention. Palliative Care will remain available.
--- NOTE | 2021-02-06 10:47 | NUR ---
Case Conference Note Attempted to see Pt. Train Control Technician currently visiting with Pt. Daughter Sara comes out and requests kendrick for Pt's "Will". Called and left message for Hospital Kendrick Rasmussen with request for a return phone call. Discussed case with Primary RN Saba. Palliative Care will attempt to F/U with Pt at a later time.
--- NOTE | 2021-02-06 14:37 | NUR ---
Case Conference Note Called and spoke with Pt's court appointed guardian Mckenzieswathi Umaña. Offered therapeutic listening and discussed goals of care. Mckenzie reports having discussion with family members and decision was made to have Pt D/C back to [facility] on hospice. Discussed hospice agencies to choose from with Mckenzie requesting hospice agency that is available the soonest. Completed POLST over the phone with Mckenzie with Pt's wishes for DNR and Comfort Measures Only. Mckenzie expresses appreciation and reports no other concerns at this time. Spoke with Rn Staff Dr Fanny Canada and relayed choice for hospice. Will obtain MD signature for POLST and deliver copy to medical records.
--- NOTE | 2021-02-06 18:16 | NUR ---
Patient is awake and non-verabl , unable to make needs known. No s/s of discomfort noted. one person assist with ADLs. Two persons extensive assist with bed mobility and repositioning. Continue on 2-3 L N/C, SP02 at 95-97%, no SOB noted. Troponin trended down to 1.10.Continue on heparin drip with a rate of 21.8 ml/hr. CT shows extensive bilateral PE. Patient likely will be discharge with hospice/palllative care. Continue on tele monitior , pacing at 71 beats/min. Chavez cath place , draining clear yellow urine. Continue to monitor.
--- NOTE | 2021-02-07 07:13 | NUR ---
PATIENT ALERT AND RESPONSIVE. PATIENT WAS VERY RESISTIVE TO PATIENT CARE, UNABLE TO FOLLOW DIRECTIONS. PATIENT IS ON HEPARIN DRIP, PHARMACY CALLED WITH NEW RATE FOR 15UNITS. WILL CONTINUE TO MONITOR.
--- NOTE | 2021-02-07 10:04 | NUR ---
Spoke with Dr Escobedo, Consumer Relations Specialist Nancie and discussed case. Plan for Pt to D/C back to [facility] tomorrow with [facility]. Dr Escobedo signs Pt's POLST. Delivered copy to medical records. Called and spoke with [facility] Liacierra Davis. Susan confirms plan to admit Pt onto hospice services tomorrow. Susan will obtain copy of POLST. Palliative Care will remain available.
[2021-02-07] MEDS ORDERED: ACET325 PO (15:57)
--- NOTE | 2021-02-07 16:49 | NUR ---
SHIFT SUMMARY PT SLEPT THE FIRST HALF OF THE SHIFT. SEEN BY ST TODAY, BUT REMAINED NPO. PLAN TO DC ON HOSPICE TOMORROW. PT BROTHER AND SISTER IN LAW IN TO VISIT TODAY. PT STATES HE IS EXCITED TO DC SO THAT HE CAN EAT. NO OTHER ACUTE CHANGES IN ASSESSMENT AT THIS TIME. VS REVIEWED. PT DENIED PAIN. CALL LIGHT IN REACH.
--- NOTE | 2021-02-08 01:51 | NUR ---
PATIENT ALERT AND RESPONSIVE. PATIENT CONTINUE TO BE CONFUSED AND RESISTIVE TO CARE. PATIENT PULLED OUT IV LINE ON THE RIGHT HAND. NURSE WAS UNABLE TO PLACE ANOTHER IV LINE PATIENT WAS FIGHTING AND REFUSING ANOTHER IV LINE PLACEMENT. NURSE WAS UNABLE TO ADMINISTER IV KEPPRA. DR. TOBAR WAS CALLED AND NOTIFIED AND HE GAVE A NEW ORDER FOR KEPPRA 1000MG PO EVERY 12 HOURS. WILL CONTINUE TO MONITOR.
[2021-02-08] MEDS ORDERED: LORA.5 PO (09:21)
[2021-02-08] MEDS ORDERED: MORP20L SL (09:21)
[2021-02-08] MEDS ORDERED: [UNRECOGNIZED DRUG - OTHER] SL (09:24)
--- NOTE | 2021-02-08 11:17 | NUR ---
DISCHARGED TO [facility] WITH HOSPICE AT 1030. REPORT CALLED TO SHE. ALL QUESTIONS ANSWERED.
== END 2021-02-08 10:37 | disposition hospice, home (50) | DRG 175 ==
LOC: ER 08:24 → MEDS 08:25
PROVIDERS: Emergency Medicine; ADMIT Internal Medicine
DX: I26.92 Saddle embolus of pulmonary artery without acute cor pulmonale (principal); J96.01 Acute respiratory failure with hypoxia; G40.909 Epilepsy, unspecified, not intractable, without status epilepticus; F01.50 Vascular dementia, unspecified severity, without behavioral disturbance, psychotic disturbance, mood disturbance, and anxiety; Z99.3 Dependence on wheelchair; F41.9 Anxiety disorder, unspecified; F32.9 Major depressive disorder, single episode, unspecified; Z98.890 Other specified postprocedural states; Z79.899 Other long term (current) drug therapy; Z79.02 Long term (current) use of antithrombotics/antiplatelets
CPT/HCPCS: 36415; 51702; 70450; 71045; 71260; 80053; 81001; 82550; 83880; 84146; 84484; 85025; 85379; 85610; 85730; 87077; 87086; 87186; 92526; 92610; 93005; 93010; 94762; 96365-59; 96366-59; 96367-59; 96368; 96376; 99285-25; A9270; C9113; G0378; J1644; J1953; J1956; J7030; J7050; Q9967; U0004